=== PATIENT | female | born 1955 | race Caucasian/White ===

== ENCOUNTER 2016-11-03 16:39 | Inpatient (IN) | payer OTHER ==
[~2016-11-03] VITALS: Ht 167.6 cm; Wt 83.2 kg
[~2016-11-03 16:39] MED LIST: AMOX250C3 PO; ASCO1CAP3 PO; CALC667C4 PO; CALCTAB5 PO; CEFD300C3 PO; CHLO1TAB19 PO; CLC100 PO; CRAN1CAP15 PO; DFL150 PO; DOXY100C76 PO; EPGI10M SC; FLUD0.1T10 PO; FLUO10CA48 PO; FRRS300 PO; FURO40TA3 PO; INVI1 IV; LACT10CA PO; LINA1TAB PO; MAGNTAB4 PO; METO50TA17 PO; OMEP20CA9 PO; PRD/1 PO; RANI300T2 PO; SODI650T8 PO; TRIA0.1O12 TOP
[2016-11-03 17:33] LABS: BASO % 0.2 %; BASO ABS # 0.02 K/uL (0-0.2); COMPLETE YES; EOS % 2.2 %; HEMATOCRIT 30.8 % (37-47); IG% 0.6 %; LYMPH % 18.3 %; LYMPH ABS # 1.57 K/uL (1.2-3.4); MEAN CELL VOLUME 103.7 fL (80-100); MEAN CORPUSCULAR HEMOGLOBIN 31.6 pg (25-34); MEAN CORPUSCULAR HGB CONC 30.5 g/dl (32-36); MEAN PLATELET VOLUME 8.6 fL (7.4-10.4); MONO % 7.7 %; PLATELET COUNT 193 K/uL (130-400); RED BLOOD COUNT 2.97 M/uL (4.2-5.4)
[2016-11-03 17:40] LABS: URINE APPEARANCE TURBID (CLEAR); URINE BILIRUBIN NEG (NEG); URINE COLOR YELLOW; URINE EPITHELIAL CELL AUTO >30 /lpf (0-5); URINE NITRITE POS (NEG); URINE PH 6.5 (4.5-7.5); URINE SPECIFIC GRAVITY 1.012 (1.000-1.030); UROBILINOGEN NEG (NEG); ZZURINE CULT IF INDIC CATH YES
[2016-11-03 17:44] LABS: PARTIAL THROMBOPLASTIN RATIO 1.1; PROTHROMBIN TIME (PATIENT) 10.2 SECONDS (9.0-12.0)
--- NOTE | 2016-11-03 17:45 | DIAGNOSTIC IMAGING REPORT ---
CHEST ONE VIEW PORTABLE CLINICAL HISTORY: Altered mental status COMPARISON STUDY: 09/29/2016 FINDINGS: The heart is enlarged. There is radiographic evidence of congestive failure/fluid overload. There is increasing left pleural effusion. There is a suspected subglottic right pleural effusion. Left basal airspace opacities are likely atelectatic although an inflammatory process could appear similar. There are chronic deformities of both shoulders.[ IMPRESSION: 1. Radiographic evidence of congestive failure/fluid overload. There are increasing bilateral pleural effusions with associated left lower lobe atelectasis/consolidation Electronically signed by: Zachary Quan M.D. 11/03/2016 5:43 PM Dictated Date/Time: 11/03/2016 5:42 PM
[2016-11-03 17:48] LABS: MANUAL MICROSCOPIC REQUIRED? NO; REVIEW REQ? YES
[2016-11-03] MEDS ORDERED: FRRS300 PO (17:59)
[2016-11-03] MEDS ORDERED: LACT1CAP3 PO (17:59)
[2016-11-03] MEDS ORDERED: CLC100X PO (17:59)
[2016-11-03] MEDS ORDERED: [UNRECOGNIZED DRUG - CODE] TOP (17:59)
[2016-11-03] MEDS ORDERED: EPGI10M SC (17:59)
[2016-11-03 18:03] LABS: ALB/GLOB RATIO 0.4 (0.9-2); ALKALINE PHOSPHATASE 198 U/L (45-117); ALT/SGPT 24 U/L (12-78); AST/SGOT 18 U/L (15-37); BLOOD UREA NITROGEN 76 mg/dl (7-18); BUN/CREATININE RATIO 16.3 (10-20); CALCIUM 10.7 mg/dl (8.5-10.1); CARBON DIOXIDE 29 mmol/L (21-32); CHLORIDE 107 mmol/L (98-107); GLUCOSE 122 mg/dl (70-99); POTASSIUM 5.8 mmol/L (3.5-5.1); SODIUM 143 mmol/L (136-145)
[2016-11-03] MEDS ORDERED: DEXTROSE 50% 50 ML SYR IV STA (19:29)
[2016-11-03] MEDS ORDERED: ONDANSETRON INJ 2 MG/ML 2 ML VIAL IV PRN (19:30)
[2016-11-03] MEDS ORDERED: ACETAMINOPHEN 325 MG TAB PO PRN (19:30)
[2016-11-03] MEDS ORDERED: INSULIN HUMAN REGULAR PER UNIT 10 UNITS in SYRINGE 9.9 ML IV STA (19:45)
[2016-11-03] MEDS ORDERED: PIPERACILL/TAZOBAC CONSULT ACTIVE PRN (19:49)
[2016-11-03] MEDS ORDERED: VBRT100 PO (19:51)
[2016-11-03] MEDS ORDERED: SODI650T8 PO (19:51)
[2016-11-03] MEDS ORDERED: MULT-506 PO (19:51)
[2016-11-03] MEDS ORDERED: CHOL20007 PO (19:51)
[2016-11-03] MEDS ORDERED: AMOX500T3 PO (19:51)
[2016-11-03] MEDS ORDERED: ALBUMIN 25% 50 ML with FUROSEMIDE INJ 80 MG IV SCH ×2 (20:00)
[2016-11-03] MEDS ORDERED: GLUCAGON FOR INJ 1 MG VIAL SQ PRN (20:00)
[2016-11-03] MEDS ORDERED: GLUCOSE 40% GEL 15 GM TUBE PO PRN (20:00)
[2016-11-03] MEDS ORDERED: GLUCOSE 10 TABS/TUBE PO PRN (20:00)
[2016-11-03] MEDS ORDERED: DEXTROSE 50% 50 ML SYR IV PRN (20:00)
[2016-11-03] MEDS ORDERED: FLUCONAZOLE CONSULT ACTIVE PRN (20:06)
[2016-11-03] MEDS ORDERED: NovoLIN-R INSULIN PER UNIT CHARGE ONE (20:15)
[2016-11-03 20:55] VITALS: BP 159/79; PULSE 98; TEMP 33.9; O2SAT 99; Ht 167.6 cm; Wt 83.2 kg
[2016-11-03] MEDS ORDERED: INSULIN ASPART 100 UNITS/ML 3 ML PEN SC SCH (21:00)
[2016-11-03] MEDS ORDERED: DOCUSATE SODIUM 100 MG CAP PO SCH (21:00)
[2016-11-03] MEDS ORDERED: PIPERACILL/TAZOBAC IV 3.375 GM in DEXTROSE 5% 100ML 100 ML IV SCH (21:00)
[2016-11-03] MEDS ORDERED: PIPERACILL/TAZOBAC IV 3.375 GM in DEXTROSE 5% 100ML 100 ML IV ONE (21:00)
[2016-11-03] MEDS ORDERED: CHLORPROMAZINE HCL 25 MG TAB PO SCH (21:00)
[2016-11-03] MEDS ORDERED: SODIUM BICARBONATE 650 MG TAB PO SCH (21:00)
[2016-11-03] MEDS ORDERED: RANITIDINE HCL 150 MG TAB PO SCH (21:00)
--- NOTE | 2016-11-03 21:41 | EMERGENCY ROOM VISIT NOTE ---
History Report prepared by Cassy: Julita Mann Under the Supervision of: Dr. Amandeep Lind M.D. First contact with patient: 16:48 Chief Complaint: ABNORMAL LABS Stated Complaint: SENT BY DR RODRIGUEZ, KIDNEY FUNCTION& HIGH POTASSIUM History of Present Illness The patient is a 61 year old female who presents to the Emergency Room with complaints of abnormal lab findings occurring 2 days prior to arrival. Per the patient's sister, the patient was at Dr. Rodriguez's office when she was referred to the ED for having a potassium level of 6. The patient has kidney disease and is close to needing dialysis. She began to notice 2 days ago the patient had increased fatigue, weakness, decreased appetite and thirst, cough and congestion. She notes that this has happened to the patient more than once and these symptoms are standard for her when she has abnormal labs. The patient does not have a fever or vomiting episodes. She has had many UTI's in the past. Source of History: sibling Onset: 2 days [employer] Position: other Symptom Intensity: potassium level 6 Quality: other (abnormal labs) Timing: worsening Associated Symptoms: + cough, + fatigue, + weakness, No fevers, No vomiting Review of Systems See HPI for pertinent positives & negatives. A total of 10 systems reviewed and were otherwise negative. Past Medical & Surgical Medical Problems: (1) Adrenal hypofunction (2) Chronic kidney disease stage 4 (3) Cognitive disorder (4) Diabetes mellitus type 2 (5) Gastroesophageal reflux disease (6) History of peptic ulcer (7) History of renal calculi (8) Recurrent UTI Surgical Problems: (1) S/P cholecystectomy (2) Status post appendectomy (3) Status post cataract extraction (4) Status post hip replacement (5) Status post partial gastrectomy Family History Gallbladder disease Hypertension Social History Smoking Status: Never Smoker Alcohol Use: none Drug Use: none Marital Status: single Housing Status: lives with family Occupation Status: disabled Current/Historical Medications Scheduled Amoxicillin (Amoxil), 250 MG PO DAILY Ascorbic Acid (Vitamin C), 500 MG PO QAM Calcium Acetate (Phoslo 667 Mg), 1 CAP PO WM Cefdinir (Cefdinir), 300 MG PO DAILY Chlorpromazine Hcl (Thorazine), 25 MG PO AMPM Cholecalciferol (Vitamin D3), 1,000 INTER.UNIT PO DAILY Cranberry-Vitamin C-Vitamin E (Cranberry), 2 CAP PO BID Docusate Sodium (Docusate Sodium), 100 MG PO BID Doxycycline Hyclate (Doxycycline Hyclate), 100 MG PO DAILY Epoetin Willie (Procrit), 10,000 UNIT SC EVERY OTHER WEEK Ferrous Sulfate (Ferrous Sulfate), 325 MG PO QAM Fludrocortisone Acetate (Florinef), 1 TAB PO DAILY Fluoxetine (Prozac), 10 MG PO HS Furosemide (Lasix), 20 MG PO BID Lactobacillus Rhamnosus (GG) (Culturelle), 1 CAP PO QAM Linagliptin (Tradjenta), 5 MG PO QAM Magnesium Chloride (Slow-Mag Tab), 128 MG PO QAM Multivitamin (Multivitamin), 1 TAB PO DAILY Prednisone (Prednisone), 1 MG PO BID Ranitidine Hcl (Zantac), 300 MG PO BID Sodium Bicarbonate (Antacid) (Sodium Bicarbonate), 1 TAB PO BID Triamcinolone Acet (Triamcinolone Acetonide), 1 APPLN TOP UD Scheduled PRN Fluconazole (Fluconazole), 150 MG PO DAILY PRN for PRN Allergies Coded Allergies: Ciprofloxacin (Verified Allergy, Intermediate, HIVES, 11/03/16) Clavulanic Acid (Verified Allergy, Intermediate, HIVES, 11/03/16) Oxycodone (Verified Allergy, Intermediate, HIVES,BLISTERS; HAS TOLERATED MORPHINE, 11/03/16) Penicillins (Verified Allergy, Intermediate, HIVES (TOLERATES IMIPENEM), TOLERATED ZOSYN, 11/03/16) Propoxyphene (Verified Allergy, Intermediate, Rash; tolerates Tylenol, ) Replaces DARVOCET-N 10 Cephalosporins (Verified Allergy, Unknown, KEFLEX (TOLERATES IMIPENEM), ) Metronidazole (Verified Allergy, Unknown, RASH, 11/03/16) Nitrofurantoin (Verified Allergy, Unknown, 11/03/16) Quinolones (Verified Allergy, Unknown, CIPRO, 11/03/16) Sulfa Antibiotics (Verified Allergy, Unknown, HIVES TO SULFA DRUGS, ) Azithromycin (Verified Adverse Reaction, Mild, VOMITING, 11/03/16) Physical Exam Vital Signs Date Time Temp Pulse Resp B/P Pulse Ox O2 Delivery O2 Flow Rate FiO2 11/03/16 18:09 36.8 88 16 188/93 99 11/03/16 17:44 88 11/03/16 17:27 98 Room Air 11/03/16 16:44 88 18 166/81 94 Room Air Physical Exam GENERAL: Patient is in no acute distress. HEENT: No acute trauma, normocephalic atraumatic, mucous membranes moist, no nasal congestion, no scleral icterus. NECK: No stridor, no adenopathy, no meningismus, trachea is midline. LUNGS: Clear to auscultation bilaterally, no wheeze, no rhonchi, breath sounds equal. HEART: 2/6 systolic murmur with regular rate and rhythm. ABDOMEN: Soft, nontender, bowel sounds positive, no hernias, no peritonitis. EXTREMITIES: No cyanosis, full range of motion of all the joints without pain or difficulty, no signs for acute trauma. Mild bilateral pitting edema. NEUROLOGIC: Awake, moving extremities equally, MR noted. SKIN: No rash, no jaundice, no diaphoresis. Medical Decision & Procedures ER Provider Diagnostic Interpretation: X-ray results as stated below per interpretation by me and the radiologist: CHEST ONE VIEW PORTABLE CLINICAL HISTORY: Altered mental status COMPARISON STUDY: 09/29/2016 FINDINGS: The heart is enlarged. There is radiographic evidence of congestive failure/fluid overload. There is increasing left pleural effusion. There is a suspected subglottic right pleural effusion. Left basal airspace opacities are likely atelectatic although an inflammatory process could appear similar. There are chronic deformities of both shoulders.[ IMPRESSION: 1. Radiographic evidence of congestive failure/fluid overload. There are increasing bilateral pleural effusions with associated left lower lobe atelectasis/consolidation Electronically signed by: Zachary Quan M.D. 11/03/2016 5:43 PM Dictated Date/Time: 11/03/2016 5:42 PM Laboratory Results 11/03/16 17:00 Red Blood Count 2.97, Mean Corpuscular Volume 103.7, Mean Corpuscular Hemoglobin 31.6, Mean Corpuscular Hemoglobin Concent 30.5, Mean Platelet Volume 8.6, Neutrophils (%) (Auto) 71.0, Lymphocytes (%) (Auto) 18.3, Monocytes (%) ( Auto) 7.7, Eosinophils (%) (Auto) 2.2, Basophils (%) (Auto) 0.2, Neutrophils # ( Auto) 6.11, Lymphocytes # (Auto) 1.57, Monocytes # (Auto) 0.66, Eosinophils # ( Auto) 0.19, Basophils # (Auto) 0.02 11/03/16 17:00 Test 11/03/16 17:00 11/03/16 17:08 11/03/16 17:15 White Blood Count 8.60 K/uL (4.8-10.8) Red Blood Count 2.97 M/uL (4.2-5.4) Hemoglobin 9.4 g/dL (12.0-16.0) Hematocrit 30.8 % (37-47) Mean Corpuscular Volume 103.7 fL (80-100) Mean Corpuscular Hemoglobin 31.6 pg (25-34) Mean Corpuscular Hemoglobin Concent 30.5 g/dl (32-36) Platelet Count 193 K/uL (130-400) Mean Platelet Volume 8.6 fL (7.4-10.4) Neutrophils (%) (Auto) 71.0 % Lymphocytes (%) (Auto) 18.3 % Monocytes (%) (Auto) 7.7 % Eosinophils (%) (Auto) 2.2 % Basophils (%) (Auto) 0.2 % Neutrophils # (Auto) 6.11 K/uL (1.4-6.5) Lymphocytes # (Auto) 1.57 K/uL (1.2-3.4) Monocytes # (Auto) 0.66 K/uL (0.11-0.59) Eosinophils # (Auto) 0.19 K/uL (0-0.5) Basophils # (Auto) 0.02 K/uL (0-0.2) RDW Standard Deviation 58.8 fL (36.4-46.3) RDW Coefficient of Variation 16.0 % (11.5-14.5) Immature Granulocyte % (Auto) 0.6 % Immature Granulocyte # (Auto) 0.05 K/uL (0.00-0.02) Nucleated RBC Absolute Count (auto) 0.03 K/uL (0-0) Nucleated Red Blood Cells % 0.3 % Prothrombin Time 10.2 SECONDS (9.0-12.0) Prothromb Time International Ratio 1.0 (0.9-1.1) Activated Partial Thromboplast Time 28.0 SECONDS (21.0-31.0) Partial Thromboplastin Ratio 1.1 Anion Gap 7.0 mmol/L (3-11) Est Creatinine Clear Calc Drug Dose 12.4 ml/min Estimated GFR () 10.4 Estimated GFR (Non- 9.0 BUN/Creatinine Ratio 16.3 (10-20) Calcium Level 10.7 mg/dl (8.5-10.1) Total Bilirubin 0.2 mg/dl (0.2-1) Aspartate Amino Transf (AST/SGOT) 18 U/L (15-37) Alanine Aminotransferase (ALT/SGPT) 24 U/L (12-78) Alkaline Phosphatase 198 U/L (45-117) Troponin I < 0.015 ng/ml (0-0.045) Total Protein 5.8 gm/dl (6.4-8.2) Albumin 1.7 gm/dl (3.4-5.0) Globulin 4.1 gm/dl (2.5-4.0) Albumin/Globulin Ratio 0.4 (0.9-2) Influenza Type A Antigen Neg for Influ A (NEG) Influenza Type B Antigen Neg for Influ B (NEG) Urine Color YELLOW Urine Appearance TURBID (CLEAR) Urine pH 6.5 (4.5-7.5) Urine Specific [place] 1.012 (1.000-1.030) Urine Protein 3+ (NEG) Urine Glucose (UA) NEG (NEG) Urine Ketones NEG (NEG) Urine Occult Blood 2+ (NEG) Urine Nitrite POS (NEG) Urine Bilirubin NEG (NEG) Urine Urobilinogen NEG (NEG) Urine Leukocyte Esterase LARGE (NEG) Urine WBC (Auto) >30 /hpf (0-5) Urine RBC (Auto) >30 /hpf (0-4) Urine Hyaline Casts (Auto) 5-10 /lpf (0-5) Urine Epithelial Cells (Auto) >30 /lpf (0-5) Urine Bacteria (Auto) NEG (NEG) Urine Pathogenic Casts /lpf (0) Urine Yeast (Auto) PRESENT (NONE PRSENT) Laboratory results reviewed by me. Medications Administered Medications (Trade) Dose Ordered Sig/Yas Route Start Time Stop Time Status Last Admin Dose Admin Dextrose (Dextrose 50% 50ML Syringe) 50 ml NOW STAT IV 11/03/16 19:29 11/03/16 19:48 DC 11/03/16 20:02 50 ML ECG Indication: other (abnormal labs) Rate (beats per minute): 89 Rhythm: normal sinus Findings: nonspecific-ST abn (diffuse), no ectopy ED Course 1647: The patient was evaluated in room A11. A complete history and physical exam was performed. 1834: Discussed the patient's case with Dr. Katina BREAUX. The patient will be evaluated for further management. Medical Decision The patient is a 61 year old female who presents to the ED with complaints of abnormal lab findings. Differential diagnoses considered include dehydration, renal failure, electrolyte imbalance, urinary infection, pneumonia, influenza. There is no leukocytosis. The patient is anemic, this is normal for her though looking back at previous testing. No hepatitis. Renal panel testing shows acute on chronic renal failure, potassium is somewhat high but not critical. There is no coagulopathy. Urinalysis is suggestive of infection, urine culture is pending. Influenza testing is negative. Chest film does show CHF. EKG shows a sinus rhythm with some nonspecific changes, no acute ischemia. Cardiac enzyme testing times one is not suggestive of acute cardiac injury. The patient presents with some fatigue and cough. She has acute on chronic renal failure, her potassium is somewhat elevated. She is in heart failure. Given her findings, admission/observation is warranted. I spoke to the patient and with case management. The on-call hospitalist was consulted. Of note, I have decided to hold on antibiotics for now for the potential UTI as she has no fever and no leukocytosis. We await the urine culture results. Consults Time Called: 1829 Consulting Physician: Dr. Katina BREAUX Returned Call: [phone] Discussed the patient's case. The patient will be evaluated for further management. Impression Primary Impression: CHF (congestive heart failure) Additional Impressions: Renal failure Hyperkalemia Scribe Attestation The scribe's documentation has been prepared under my direction and personally reviewed by me in its entirety. I confirm that the note above accurately reflects all work, treatment, procedures, and medical decision making performed by me. Departure Information Dispostion Being Evaluated By Hospitalist Referrals Esly Frankel D.O. (PCP) Problem Qualifiers
[2016-11-03] MEDS ORDERED: FLUCONAZOLE / NSS 200 MG in PREMIXED NSS 100 ML IV ONE (22:30)
[2016-11-03] MEDS ORDERED: FLUOXETINE HCL 10 MG CAP PO SCH (23:00)
[2016-11-03 23:14] LABS: BUN/CREATININE RATIO 15.7 (10-20); CALCIUM 10.6 mg/dl (8.5-10.1); CREATININE 4.8 mg/dl (0.60-1.20)
[2016-11-03] MEDS ORDERED: HYDROCORTISONE IV ONE (23:15)
--- NOTE | 2016-11-03 23:43 | History and Physical ---
History & Physical Date & Time of Service: Nov 03, 2016 at 22:34 Chief Complaint: Lethargy, Weakness Primary Care Physician: Elsy Frankel D.O. History of Present Illness 61 year old female who presents to the ER with lethargy and weakness. Patient has underlying mental retardation and most of the history is obtained from her family. Patient was recently admitted to [facility] 09/26 - 10/01 for sepsis due to pneumonia and UTI. Patient's family reports she has been doing well since being home. Patient started to get sick two nights ago. They have noticed increased lethargy and generalized weakness. She has been breathing through her mouth and fast. She has a cough but it is very weak. She has lower extremity edema which is at baseline. No reports of chest pain. No abdominal pain, nausea, vomiting, or diarrhea. Family has noticed her urine output has been down. No fever or chills. Family contacted patient's yield loss inspector who ordered labs that showed worsening renal function and hyperkalemia. Patient was referred to the ER for further evaluation. In the ER, patient's creat is 4.8 and K+ is 5.8. U/A is consistent with UTI. Chest XR is showing volume overload. Past Medical/Surgical History Medical Problems: (1) Adrenal hypofunction Status: Chronic (2) Chronic kidney disease stage 4 Status: Chronic (3) Cognitive disorder Status: Chronic (4) Diabetes mellitus type 2 Status: Chronic (5) Gastroesophageal reflux disease Status: Chronic (6) History of peptic ulcer Status: Chronic (7) History of renal calculi Status: Chronic (8) Recurrent UTI Status: Chronic Surgical Problems: (1) S/P cholecystectomy Status: Chronic (2) Status post appendectomy Status: Chronic (3) Status post cataract extraction Status: Chronic (4) Status post hip replacement Status: Chronic (5) Status post partial gastrectomy Status: Chronic Family History Hypertension FATHER MOTHER Social History Smoking Status: Never Smoker Alcohol Use: none Housing status: lives with family Occupational Status: disabled Immunizations History of Influenza Vaccine: Yes Influenza Vaccine Date: Aug 21, 2016 History of Tetanus Vaccine?: Yes Tetanus Immunization Date: Mar 24, 2008 History of Pneumococcal: Yes Pneumococcal Date: Jul 15, 1990 Multi-Drug Resistant Organisms History of MDRO: No Allergies Coded Allergies: Ciprofloxacin (Verified Allergy, Intermediate, HIVES, 11/03/16) Clavulanic Acid (Verified Allergy, Intermediate, HIVES, 11/03/16) Oxycodone (Verified Allergy, Intermediate, HIVES,BLISTERS; HAS TOLERATED MORPHINE, 11/03/16) Penicillins (Verified Allergy, Intermediate, HIVES (TOLERATES IMIPENEM), TOLERATED ZOSYN, 11/03/16) Propoxyphene (Verified Allergy, Intermediate, Rash; tolerates Tylenol, ) Replaces DARVOCET-N 10 Cephalosporins (Verified Allergy, Unknown, KEFLEX (TOLERATES IMIPENEM), ) Metronidazole (Verified Allergy, Unknown, RASH, 11/03/16) Nitrofurantoin (Verified Allergy, Unknown, 11/03/16) Quinolones (Verified Allergy, Unknown, CIPRO, 11/03/16) Sulfa Antibiotics (Verified Allergy, Unknown, HIVES TO SULFA DRUGS, ) Azithromycin (Verified Adverse Reaction, Mild, VOMITING, 11/03/16) Home Medications Scheduled Amoxicillin (Amoxil), 250 MG PO DAILY Ascorbic Acid (Vitamin C), 500 MG PO QAM Calcium Acetate (Phoslo 667 Mg), 1 CAP PO WM Cefdinir (Cefdinir), 300 MG PO DAILY Chlorpromazine Hcl (Thorazine), 25 MG PO AMPM Cholecalciferol (Vitamin D3), 1,000 INTER.UNIT PO DAILY Cranberry-Vitamin C-Vitamin E (Cranberry), 2 CAP PO BID Docusate Sodium (Docusate Sodium), 100 MG PO BID Doxycycline Hyclate (Doxycycline Hyclate), 100 MG PO DAILY Epoetin Willie (Procrit), 10,000 UNIT SC EVERY OTHER WEEK Ferrous Sulfate (Ferrous Sulfate), 325 MG PO QAM Fludrocortisone Acetate (Florinef), 1 TAB PO DAILY Fluoxetine (Prozac), 10 MG PO HS Furosemide (Lasix), 20 MG PO BID Lactobacillus Rhamnosus (GG) (Culturelle), 1 CAP PO QAM Linagliptin (Tradjenta), 5 MG PO QAM Magnesium Chloride (Slow-Mag Tab), 128 MG PO QAM Multivitamin (Multivitamin), 1 TAB PO DAILY Prednisone (Prednisone), 1 MG PO BID Ranitidine Hcl (Zantac), 300 MG PO BID Triamcinolone Acet (Triamcinolone Acetonide), 1 APPLN TOP UD Scheduled PRN Fluconazole (Fluconazole), 150 MG PO DAILY PRN for PRN Review of Systems unable to be completed with patient due to mental status; history obtained from family as per HPI Physical Exam Vital Signs Date Time Temp Pulse Resp B/P Pulse Ox O2 Delivery O2 Flow Rate FiO2 11/03/16 20:55 33.9 98 20 159/79 99 Nasal Cannula 2.0 11/03/16 18:09 36.8 88 16 188/93 99 11/03/16 17:44 88 11/03/16 17:27 98 Room Air 11/03/16 16:44 88 18 166/81 94 Room Air General Appearance: no apparent distress Head: normocephalic Eyes: normal inspection ENT: hearing grossly normal Neck: supple, no JVD Respiratory/Chest: + crackles, + rhonchi Cardiovascular: regular rate, rhythm, normal peripheral pulses, + pertinent finding (+2 pitting edema BLLE) Abdomen/GI: normal bowel sounds, non tender, soft Extremities/Musculoskelatal: normal inspection, no calf tenderness Neurologic/Psych: + pertinent finding (hx mental retardation, mildly lethargic , minimal interaction ) Skin: normal color, warm/dry Diagnostics Laboratory Results Results Past 24 Hours Test 11/03/16 17:00 11/03/16 17:08 11/03/16 17:15 11/03/16 22:18 Range/Units White Blood Count 8.60 4.8-10.8 K/uL Red Blood Count 2.97 4.2-5.4 M/uL Hemoglobin 9.4 12.0-16.0 g/dL Hematocrit 30.8 37-47 % Mean Corpuscular Volume 103.7 80-100 fL Mean Corpuscular Hemoglobin 31.6 25-34 pg Mean Corpuscular Hemoglobin Concent 30.5 32-36 g/dl Platelet Count 193 130-400 K/uL Mean Platelet Volume 8.6 7.4-10.4 fL Neutrophils (%) (Auto) 71.0 % Lymphocytes (%) (Auto) 18.3 % Monocytes (%) (Auto) 7.7 % Eosinophils (%) (Auto) 2.2 % Basophils (%) (Auto) 0.2 % Neutrophils # (Auto) 6.11 1.4-6.5 K/uL Lymphocytes # (Auto) 1.57 1.2-3.4 K/uL Monocytes # (Auto) 0.66 0.11-0.59 K/uL Eosinophils # (Auto) 0.19 0-0.5 K/uL Basophils # (Auto) 0.02 0-0.2 K/uL RDW Standard Deviation 58.8 36.4-46.3 fL RDW Coefficient of Variation 16.0 11.5-14.5 % Immature Granulocyte % (Auto) 0.6 % Immature Granulocyte # (Auto) 0.05 0.00-0.02 K/uL Nucleated RBC Absolute Count (auto) 0.03 0-0 K/uL Nucleated Red Blood Cells % 0.3 % Prothrombin Time 10.2 9.0-12.0 SECONDS Prothromb Time International Ratio 1.0 0.9-1.1 Activated Partial Thromboplast Time 28.0 21.0-31.0 SECONDS Partial Thromboplastin Ratio 1.1 Sodium Level 143 136-145 mmol/L Potassium Level 5.8 3.5-5.1 mmol/L Chloride Level 107 98-107 mmol/L Carbon Dioxide Level 29 21-32 mmol/L Anion Gap 7.0 3-11 mmol/L Blood Urea Nitrogen 76 7-18 mg/dl Creatinine 4.80 0.60-1.20 mg/dl Est Creatinine Clear Calc Drug Dose 12.4 ml/min Estimated GFR () 10.4 Estimated GFR (Non- 9.0 BUN/Creatinine Ratio 16.3 10-20 Random Glucose 122 70-99 mg/dl Calcium Level 10.7 8.5-10.1 mg/dl Total Bilirubin 0.2 0.2-1 mg/dl Aspartate Amino Transf (AST/SGOT) 18 15-37 U/L Alanine Aminotransferase (ALT/SGPT) 24 12-78 U/L Alkaline Phosphatase 198 45-117 U/L Troponin I < 0.015 0-0.045 ng/ml Total Protein 5.8 6.4-8.2 gm/dl Albumin 1.7 3.4-5.0 gm/dl Globulin 4.1 2.5-4.0 gm/dl Albumin/Globulin Ratio 0.4 0.9-2 Influenza Type A Antigen Neg for Influ A NEG Influenza Type B Antigen Neg for Influ B NEG Urine Color YELLOW Urine Appearance TURBID CLEAR Urine pH 6.5 4.5-7.5 Urine Specific Williams 1.012 1.000-1.030 Urine Protein 3+ NEG Urine Glucose (UA) NEG NEG Urine Ketones NEG NEG Urine Occult Blood 2+ NEG Urine Nitrite POS NEG Urine Bilirubin NEG NEG Urine Urobilinogen NEG NEG Urine Leukocyte Esterase LARGE NEG Urine WBC (Auto) >30 0-5 /hpf Urine RBC (Auto) >30 0-4 /hpf Urine Hyaline Casts (Auto) 5-10 0-5 /lpf Urine Epithelial Cells (Auto) >30 0-5 /lpf Urine Bacteria (Auto) NEG NEG Urine Pathogenic Casts 0 /lpf Urine Yeast (Auto) PRESENT NONE PRSENT Microbiology Results 11/03/16 MRSA DNA Surveillance Screen, Received Pending 11/03/16 Urine Culture, Received Pending Diagnostic Radiology CXR IMPRESSION: 1. Radiographic evidence of congestive failure/fluid overload. There are increasing bilateral pleural effusions with associated left lower lobe atelectasis/consolidation Impression Assessment and Plan VOLUME OVERLOAD IN THE SETTING OF CKD STAGE IV - admit to tele - baseline creat runs in the mid 4's -> 4.8 today; nephrology has discussed dialysis with family and they decline as patient would not be a good candidate - CXR shows BL pleural effusions and patient has crackles and pitting edema on exam - case discussed with Dr. Lawler - will give Lasix 80mg IV BID with albumin - sandoval placed for strict I/Os - daily weights - check echo - noted that sodium bicarb was recently stopped by Dr. Lawler to rod buster helper with edema HYPERKALEMIA, HYPERCALCEMIA - patient not alert enough for Kayexalate - no EKG changes - will give insulin and D50, Lasix will help too - hold calcium acetate - recheck PRP later tonight POSSIBLE SEPSIS DUE TO UTI / ? PNEUMONIA - on initial exam, patient did not meet any SIRS criteria, however once patient transferred to floor, she was noted to hypothermic and tachycardic - will check Lactate and obtain blood cultures - has history of recurrent UTIs and is chronically on amoxicillin, cefdinir, doxycycline on a rotating basis - most recent urine culture grew klebsiella oxytoca - will place on Zosyn per allergies and prior culture results - urine culture pending - CXR showing consolidation in the left base - Zosyn will cover pulmonary source as well - no history of MRSA and vanco caused nephrotoxicity; will check MRSA nasal swab and if positive, could add Zyvox ALTERED MENTAL STATUS - likely multifactorial due to above - will check CT head ADRENAL INSUFFICIENCY - chronically on prednisone and Florinef - unable to take PO currently due to mental status - will convert PO prednisone dose to IV hydrocortisone for tonight - BP stable DM - hgb a1c 6.2 05/2016 - hold oral agents and utilize SSI while hospitalized DVT PROPHYLAXIS - SCDs due to anemia and history of perforated ulcer CODE STATUS - Patient is a full code as per my discussion with patient's family who is at the bedside. DISPO - In my clinical judgment this beneficiary meets acute admission criteria, established by [facility], that includes being hospitalized through two midnights. Attending Note: Patient is a 61 Yr old female with PMH of MR, CKD, adrenal insufficiency, DM presents with lethargy, weakness. Patient could not provide any history and most of the history is obtained from the family. Patient on examination is in volume overload, ideally needs HD given CKD but not a candidate secondary to mental retardation. Also seemed to be septic likely secondary to Pneumonia, UTI. She is currently saturating well on 2L NC. She was found to have worsening renal function and is hyperkalemia. Physical Exam: Vitals signs as noted above General Appearance:Moderately built, chronically ill appearing, mild resp. distress Head: normocephalic, Atraumatic Eyes: normal inspection, EOMI, Anicteric Neck: supple, Trachea midline Respiratory/Chest: B/L rhonchi and crepitations Cardiovascular: S1, S2, no murmur Abdomen/GI:Soft, Non tender, BS present Extremities/Musculoskelatal:normal inspection, 2+ edema b/l LE Neurologic/Psych:+ mental retardation, moves all extremities.Complete neuro exam could not be performed. Assessment and Plan: Volume overload and Hypoxic respiratory failure: Background of CKD IV, Hypoalbuminemia Ideally needs HD, not a candidate secondary to mental retardation Will give lasix, albumin per recommendations from Nephrology Respiratory support Check ECHO Bronchodilators PRN Nephrology consulted Possible Sepsis: Pneumonia, R/O UTI Start on broad spectrum IV antibiotics Blood/Urine cultures Check lactic acid AMS: Likely secondary to sepsis Check CT head Agree with assessment and plan of Alea Romo [employer] G[employer] SHOTHOLE DRILLER as above. please review above for details. Advanced Directives Existing Advance Directive: No Existing Living Will: No Existing Power of Tank Bottom Assembler: No VTE Prophylaxis VTE Risk Assessment Done? Y/N: Yes Risk Level: Moderate
[2016-11-04] VITALS (10 sets, daily range): BP systolic 84–169; BP diastolic 51–90; PULSE 97–125; TEMP 34–37.4; O2SAT 92–100
[2016-11-04 01:58] LABS: ISTAT ARTERIAL BLOOD GAS HCO3 30 meq/L (19-24); ISTAT ARTERIAL BLOOD GAS PCO2 72 mmHg (35-46); ISTAT ARTERIAL BLOOD GAS PO2 273 mmHg (80-95); ISTAT ARTERIAL BLOOD GAS pH 7.23 (7.35-7.45); ISTAT CARBON DIOXIDE 32 mEq/l (24-31); ISTAT HEMATOCRIT 29 % (37-47); ISTAT HEMOGLOBIN 9.9 g/dl (12.0-16.0); ISTAT SODIUM 140 mEq/L (135-144)
--- NOTE | 2016-11-04 01:58 | Progress Note ---
Internal Med Progress Note Date of Service: Nov 04, 2016. Provider Documentation: SUBJECTIVE: CODE BLUE called around 1AM at CT scan per RN/PUNCH PRESS OPERATOR, px noted to be in resp distress while in CT subsequently developed cardioresp arrest CPR initiated px subsequently intubated by ER MD Martini given ROSC obtained after a few minutes of CPR OBJECTIVE: Vital Signs-as noted below Exam: General-unresponsive, intubated, cushingoid HEENT -pale palp conjunctivae, dry buccal mucosa, ET noted (quintero boss secretions noted) attached to ambubag by RT Neck- short Lungs-rhonchi lalo Heart-tachycardic Abdomen-distension Extremities-min edemam NT NE unresponsive CXR infiltrate, bibasilar infiltrates AP Cardioresp arrest multifactorial : bilateral pneumonia, poss sepsis pulm congestion, ESRD (px not a dialysis candidate as per records) ICU transfer vent mx ff CS, Vanco, Zosyn for now Lasix precluded by low BP nebs, steroids RTC TTE re cardiac arrest Px sister, Jia, updated of px critical condition, potential for another cardiac arrest by myself and Dr. Caballero (specimen boss). She agrees to de-escalate code status to DNR in the event of another arrest. Keep on vent and meds for now. PX sister requesting to hold off on invasive procedures (dialysis, central line placement). She will notify px's mother of developments. Total critical care time : 45 mins Vital Signs: Date Time Temp Pulse Resp B/P Pulse Ox O2 Delivery O2 Flow Rate FiO2 11/04/16 07:30 50 11/04/16 06:00 36.6 124 20 117/65 93 Mechanical Ventilator 50 11/04/16 05:15 50 11/04/16 05:00 36.7 124 20 111/65 94 Mechanical Ventilator 50 11/04/16 05:00 94 Mechanical Ventilator 50 11/04/16 05:00 50 11/04/16 04:00 36.2 119 20 97/55 94 Mechanical Ventilator 50 11/04/16 03:00 35.2 107 20 84/51 93 Mechanical Ventilator 35 11/04/16 02:30 40 11/04/16 01:54 60 11/04/16 01:40 34.1 108 20 169/90 100 Mechanical Ventilator 100 11/04/16 00:00 34.0 97 20 149/73 92 Nasal Cannula 4.0 11/04/16 00:00 Nasal Cannula 4.0 11/03/16 20:55 33.9 98 20 159/79 99 Nasal Cannula 2.0 11/03/16 18:09 36.8 88 16 188/93 99 11/03/16 17:44 88 11/03/16 17:27 98 Room Air 11/03/16 16:44 88 18 166/81 94 Room Air Lab Results: Results Past 24 Hours Test 11/03/16 17:00 11/03/16 17:08 11/03/16 17:15 11/03/16 22:18 Range/Units White Blood Count 8.60 4.8-10.8 K/uL Red Blood Count 2.97 4.2-5.4 M/uL Hemoglobin 9.4 12.0-16.0 g/dL Hematocrit 30.8 37-47 % Mean Corpuscular Volume 103.7 80-100 fL Mean Corpuscular Hemoglobin 31.6 25-34 pg Mean Corpuscular Hemoglobin Concent 30.5 32-36 g/dl Platelet Count 193 130-400 K/uL Mean Platelet Volume 8.6 7.4-10.4 fL Neutrophils (%) (Auto) 71.0 % Lymphocytes (%) (Auto) 18.3 % Monocytes (%) (Auto) 7.7 % Eosinophils (%) (Auto) 2.2 % Basophils (%) (Auto) 0.2 % Neutrophils # (Auto) 6.11 1.4-6.5 K/uL Lymphocytes # (Auto) 1.57 1.2-3.4 K/uL Monocytes # (Auto) 0.66 0.11-0.59 K/uL Eosinophils # (Auto) 0.19 0-0.5 K/uL Basophils # (Auto) 0.02 0-0.2 K/uL RDW Standard Deviation 58.8 36.4-46.3 fL RDW Coefficient of Variation 16.0 11.5-14.5 % Immature Granulocyte % (Auto) 0.6 % Immature Granulocyte # (Auto) 0.05 0.00-0.02 K/uL Nucleated RBC Absolute Count (auto) 0.03 0-0 K/uL Nucleated Red Blood Cells % 0.3 % Prothrombin Time 10.2 9.0-12.0 SECONDS Prothromb Time International Ratio 1.0 0.9-1.1 Activated Partial Thromboplast Time 28.0 21.0-31.0 SECONDS Partial Thromboplastin Ratio 1.1 Sodium Level 143 146 136-145 mmol/L Potassium Level 5.8 5.0 3.5-5.1 mmol/L Chloride Level 107 109 98-107 mmol/L Carbon Dioxide Level 29 27 21-32 mmol/L Anion Gap 7.0 10.0 3-11 mmol/L Blood Urea Nitrogen 76 75 7-18 mg/dl Creatinine 4.80 4.80 0.60-1.20 mg/dl Est Creatinine Clear Calc Drug Dose 12.4 12.9 ml/min Estimated GFR () 10.4 10.4 Estimated GFR (Non- 9.0 9.0 BUN/Creatinine Ratio 16.3 15.7 10-20 Random Glucose 122 52 70-99 mg/dl Calcium Level 10.7 10.6 8.5-10.1 mg/dl Total Bilirubin 0.2 0.2-1 mg/dl Aspartate Amino Transf (AST/SGOT) 18 15-37 U/L Alanine Aminotransferase (ALT/SGPT) 24 12-78 U/L Alkaline Phosphatase 198 45-117 U/L Troponin I < 0.015 0-0.045 ng/ml Total Protein 5.8 6.4-8.2 gm/dl Albumin 1.7 3.4-5.0 gm/dl Globulin 4.1 2.5-4.0 gm/dl Albumin/Globulin Ratio 0.4 0.9-2 Influenza Type A Antigen Neg for Influ A NEG Influenza Type B Antigen Neg for Influ B NEG Urine Color YELLOW Urine Appearance TURBID CLEAR Urine pH 6.5 4.5-7.5 Urine Specific Potter 1.012 1.000-1.030 Urine Protein 3+ NEG Urine Glucose (UA) NEG NEG Urine Ketones NEG NEG Urine Occult Blood 2+ NEG Urine Nitrite POS NEG Urine Bilirubin NEG NEG Urine Urobilinogen NEG NEG Urine Leukocyte Esterase LARGE NEG Urine WBC (Auto) >30 0-5 /hpf Urine RBC (Auto) >30 0-4 /hpf Urine Hyaline Casts (Auto) 5-10 0-5 /lpf Urine Epithelial Cells (Auto) >30 0-5 /lpf Urine Bacteria (Auto) NEG NEG Urine Pathogenic Casts 0 /lpf Urine Yeast (Auto) PRESENT NONE PRSENT Test 11/03/16 23:23 11/03/16 23:29 11/04/16 00:00 11/04/16 01:30 Range/Units Lactic Acid Level 1.3 0.4-2.0 mmol/L Bedside Glucose 61 96 70-90 mg/dl White Blood Count 18.45 4.8-10.8 K/uL Red Blood Count 2.74 4.2-5.4 M/uL Hemoglobin 8.8 12.0-16.0 g/dL Hematocrit 28.1 37-47 % Mean Corpuscular Volume 102.6 80-100 fL Mean Corpuscular Hemoglobin 32.1 25-34 pg Mean Corpuscular Hemoglobin Concent 31.3 32-36 g/dl Platelet Count 211 130-400 K/uL Mean Platelet Volume 9.4 7.4-10.4 fL Neutrophils (%) (Auto) 38.1 % Lymphocytes (%) (Auto) 51.4 % Monocytes (%) (Auto) 7.8 % Eosinophils (%) (Auto) 1.3 % Basophils (%) (Auto) 0.2 % Neutrophils # (Auto) 7.03 1.4-6.5 K/uL Lymphocytes # (Auto) 9.49 1.2-3.4 K/uL Monocytes # (Auto) 1.43 0.11-0.59 K/uL Eosinophils # (Auto) 0.24 0-0.5 K/uL Basophils # (Auto) 0.04 0-0.2 K/uL RDW Standard Deviation 58.8 36.4-46.3 fL RDW Coefficient of Variation 16.1 11.5-14.5 % Immature Granulocyte % (Auto) 1.2 % Immature Granulocyte # (Auto) 0.22 0.00-0.02 K/uL Nucleated RBC Absolute Count (auto) 0.21 0-0 K/uL Nucleated Red Blood Cells % 1.1 % Red Blood Cell Morphology Unremarkable Sodium Level 146 136-145 mmol/L Potassium Level 4.7 3.5-5.1 mmol/L Chloride Level 107 98-107 mmol/L Carbon Dioxide Level 28 21-32 mmol/L Anion Gap 11.0 3-11 mmol/L Blood Urea Nitrogen 77 7-18 mg/dl Creatinine 4.80 0.60-1.20 mg/dl Est Creatinine Clear Calc Drug Dose 12.9 ml/min Estimated GFR () 10.4 Estimated GFR (Non- 9.0 BUN/Creatinine Ratio 16.1 10-20 Random Glucose 341 70-99 mg/dl Calcium Level 9.8 8.5-10.1 mg/dl Magnesium Level 3.4 1.8-2.4 mg/dl Total Bilirubin 0.1 0.2-1 mg/dl Aspartate Amino Transf (AST/SGOT) 24 15-37 U/L Alanine Aminotransferase (ALT/SGPT) 25 12-78 U/L Alkaline Phosphatase 140 45-117 U/L Troponin I < 0.015 0-0.045 ng/ml Total Protein 5.0 6.4-8.2 gm/dl Albumin 1.6 3.4-5.0 gm/dl Globulin 3.4 2.5-4.0 gm/dl Albumin/Globulin Ratio 0.5 0.9-2 Beta-Hydroxybutyric Acid 5.08 0.2-2.81 mg/dL Test 11/04/16 01:45 11/04/16 04:00 11/04/16 04:29 11/04/16 07:48 Range/Units Bedside Hemoglobin 9.9 12.0-16.0 g/dl Bedside Hematocrit 29 37-47 % Bedside Blood Gas pH (LAB) 7.23 7.38 7.35-7.45 Bedside Blood Gas pCO2 (LAB) 72 47 35-46 mmHg Bedside Blood Gas pO2 (LAB) 273 53 80-95 mmHg Bedside Blood Gas HCO3 (LAB) 30 28 19-24 meq/L Bedside Blood Gas Total CO2 32 29 24-31 mEq/l Bedside Blood Gas Base Excess (LAB) 2.0 2.0 -9-1.8 meq/L Bedside Blood Gas O2 Saturation 100.0 87.0 90-95 % Bedside Sodium 140 135-144 mEq/L Bedside Potassium 4.5 3.3-5.0 mEq/L Blood Gas Sample Site R Radial Alfredo Test Pass Oxygen Delivery Device Ventilator Bedside Oxygen Rate (breaths/min) 20 Blood Gas Minute Ventilation 7.4 Bedside FiO2 40 % Blood Gas Tidal Volume 400 Blood Gas PEEP 5 Bedside Glucose 144 138 70-90 mg/dl Test 11/04/16 07:59 Range/Units Microbiology Results 11/03/16 Blood Culture, Received Pending 11/03/16 Blood Culture, Received Pending 1/20/17 MRSA DNA Surveillance Screen - Final, Complete Specimen Negative for MRSA by DNA Probe 11/04/16 Gram Stain, Received Pending 11/04/16 Sputum Culture, Received Pending 11/03/16 Urine Culture, Received Pending 11/04/16 Gram Stain, Received Pending 11/04/16 Wound Culture, Received Pending
[2016-11-04] MEDS ORDERED: VANCOMYCIN INJ 1,700 MG in SODIUM CHLORIDE 0.9% 500ML 500 ML IV STA (02:03)
[2016-11-04] MEDS ORDERED: DEXAMETHASONE INJ 4 MG in SYRINGE 0 ML IV ONE (02:15)
[2016-11-04] MEDS ORDERED: VANCOMYCIN CONSULT ACTIVE PRN (02:15)
[2016-11-04] MEDS ORDERED: HYDROmorphone INJ 0.5 MG/0.5 ML SYR IV PRN (02:15)
[2016-11-04] MEDS ORDERED: IPRATROPIUM BROMIDE HFA INHALER INH ONE (02:16)
[2016-11-04] MEDS ORDERED: LEValbuterol HFA 15GM INHALER INH ONE (02:16)
[2016-11-04] MEDS ORDERED: METHYLPREDNISOLONE IV 125 MG in SYRINGE 0 ML IV ONE (02:30)
[2016-11-04 03:02] LABS: BASO % 0.2 %; BASO ABS # 0.04 K/uL (0-0.2); COMPLETE YES; EOS % 1.3 %; HEMATOCRIT 28.1 % (37-47); IG% 1.2 %; LYMPH % 51.4 %; LYMPH ABS # 9.49 K/uL (1.2-3.4); MEAN CELL VOLUME 102.6 fL (80-100); MEAN CORPUSCULAR HEMOGLOBIN 32.1 pg (25-34); MEAN CORPUSCULAR HGB CONC 31.3 g/dl (32-36); MEAN PLATELET VOLUME 9.4 fL (7.4-10.4); MONO % 7.8 %; NEUT % 38.1 %; PLATELET COUNT 211 K/uL (130-400); RED BLOOD COUNT 2.74 M/uL (4.2-5.4); WHITE BLOOD COUNT 18.45 K/uL (4.8-10.8)
[2016-11-04 03:13] LABS: ALB/GLOB RATIO 0.5 (0.9-2); ALKALINE PHOSPHATASE 140 U/L (45-117); ALT/SGPT 25 U/L (12-78); AST/SGOT 24 U/L (15-37); BLOOD UREA NITROGEN 77 mg/dl (7-18); BUN/CREATININE RATIO 16.1 (10-20); CALCIUM 9.8 mg/dl (8.5-10.1); CARBON DIOXIDE 28 mmol/L (21-32); CHLORIDE 107 mmol/L (98-107); GLUCOSE 341 mg/dl (70-99); MAGNESIUM 3.4 mg/dl (1.8-2.4); POTASSIUM 4.7 mmol/L (3.5-5.1); SODIUM 146 mmol/L (136-145)
[2016-11-04 03:38] LABS: BETA-HYDROXYBUTYRATE 5.08 mg/dL (0.2-2.81)
[2016-11-04] MEDS ORDERED: PIPERACILL/TAZOBAC IV 3.375 GM in DEXTROSE 5% 100ML 100 ML IV SCH (04:00)
[2016-11-04 04:14] LABS: ISTAT ALLEN TEST Pass; ISTAT ARTERIAL BLOOD GAS HCO3 28 meq/L (19-24); ISTAT ARTERIAL BLOOD GAS PCO2 47 mmHg (35-46); ISTAT ARTERIAL BLOOD GAS PO2 53 mmHg (80-95); ISTAT ARTERIAL BLOOD GAS pH 7.38 (7.35-7.45); ISTAT CARBON DIOXIDE 29 mEq/l (24-31); ISTAT DELIVERY SYSTEM Ventilator; ISTAT FIO2 40 %; ISTAT PEEP 5; ISTAT RATE 20; ISTAT SITE R Radial; VE 7.4; Vt 400
[2016-11-04] MEDS ORDERED: INSULIN GLARGINE SOLOSTAR 100 UNITS/ML 3 ML PEN SC ONE (04:30)
[2016-11-04] MEDS ORDERED: IPRATROPIUM BROMIDE HFA INHALER INH SCH (06:00)
[2016-11-04] MEDS ORDERED: LEValbuterol HFA 15GM INHALER INH SCH (06:00)
[2016-11-04] MEDS: LEValbuterol HFA 15GM INHALER INH SCH ×2 (07:30→14:14)
[2016-11-04] MEDS: IPRATROPIUM BROMIDE HFA INHALER INH SCH ×2 (07:30→14:14)
--- NOTE | 2016-11-04 08:10 | Pharmacy Progress Note ---
Pharmacy Antibiotic Consult Date of Service: Nov 04, 2016. Pharmacy Dosing Scope Pharmacy is consulted to initiate Vanco/Zosyn IV dosing therapy, order appropriate labs and adjust drug dose/frequency. Subjective The patient is a 61 year old female admitted on Nov 03, 2016 at 19:29. Objective Height (Feet): 5 Height (Inches): 6.00 Weight (Kilograms): 83.200 Lab Results (24hrs): Item Value Date Time Creatinine 4.80 mg/dl *H 11/04/16 0130 Est Creatinine Clear Calc Drug Dose 12.9 ml/min 11/04/16 0130 Laboratory Tests Test 11/03/16 17:00 11/03/16 22:18 11/04/16 01:30 BUN/Creatinine Ratio 16.3 15.7 16.1 Blood Urea Nitrogen 76 mg/dl 75 mg/dl 77 mg/dl Creatinine 4.80 mg/dl 4.80 mg/dl 4.80 mg/dl White Blood Count 8.60 K/uL 18.45 K/uL Red Blood Count 2.97 M/uL 2.74 M/uL Hemoglobin 9.4 g/dL 8.8 g/dL Hematocrit 30.8 % 28.1 % Mean Corpuscular Volume 103.7 fL 102.6 fL Mean Corpuscular Hemoglobin 31.6 pg 32.1 pg Mean Corpuscular Hemoglobin Concent 30.5 g/dl 31.3 g/dl Platelet Count 193 K/uL 211 K/uL Mean Platelet Volume 8.6 fL 9.4 fL Neutrophils (%) (Auto) 71.0 % 38.1 % Lymphocytes (%) (Auto) 18.3 % 51.4 % Monocytes (%) (Auto) 7.7 % 7.8 % Eosinophils (%) (Auto) 2.2 % 1.3 % Basophils (%) (Auto) 0.2 % 0.2 % Neutrophils # (Auto) 6.11 K/uL 7.03 K/uL Lymphocytes # (Auto) 1.57 K/uL 9.49 K/uL Monocytes # (Auto) 0.66 K/uL 1.43 K/uL Eosinophils # (Auto) 0.19 K/uL 0.24 K/uL Basophils # (Auto) 0.02 K/uL 0.04 K/uL Micro Results: Item Value Date Time Gram Stain Received 11/04/16 0500 Ulcer Knee Left Pending Gram Stain Received 11/04/16 0500 Sputum Expectorated Sputum Pending Blood Culture Received 11/03/16 2330 Blood Pending Blood Culture Received 11/03/16 2323 Blood Pending MRSA DNA Surveillance Screen - Final Complete 11/03/16 2116 Nasal Specimen Negative for MRSA by DNA Probe Urine Culture Received 11/03/16 1715 Urine,Catheterized Pending Assessment & Plan Pt is a 61yo F admitted with suspected UTI. Nitrites are positive which leads me to expect we may be dealing with a gram(-) pathogen. Pt is empirically being treated with Vanco/Zosyn. Pt's renal fxn is poor Scr=4.8 and eCrCL =12.9CC/min. Pt and her family are currently declining HD and Ms. Valdes only produced 425cc of urine on 11/03/16. Which means she is excreting very little Vancomycin. Will obtain a random lvl sp to assess what should be done next. She did receive a one time dose of Vanco 1700mg (20mg/kg) this AM at 0235. MRSA nasal was negative, all other c/s's are pending. Pt has a BMI of 30, she is at a risk of accumulating Vanco. Pt's EI Zosyn q12 is appropriate based on clinical picture and eCrCl <20cc/min Pharmacy will continue to follow and will adjust dose/frequency as necessary. Thank you
[2016-11-04] MEDS ORDERED: FERROUS SULFATE 325 MG TAB PO SCH (09:00)
[2016-11-04] MEDS ORDERED: LACTOBACILLUS ACIDOPHILUS (FLORANEX) TAB PO SCH (09:00)
[2016-11-04] MEDS ORDERED: FLUDROCORTISONE ACETATE 0.1 MG TAB PO SCH (09:00)
[2016-11-04] MEDS ORDERED: ALBUMIN 25% 50 ML with FUROSEMIDE INJ 80 MG IV SCH ×2 (09:00)
[2016-11-04] MEDS ORDERED: MULTIVITAMIN TAB PO SCH (09:00)
[2016-11-04] MEDS ORDERED: NURSING DECISION MEDICATION ORDER SCH (09:30)
--- NOTE | 2016-11-04 09:50 | DIAGNOSTIC IMAGING REPORT ---
SINGLE VIEW CHEST CLINICAL HISTORY: Respiratory failure. Intubation. FINDINGS: An AP, portable, upright chest radiograph is compared to study dated 11/03/2016. The examination is degraded by portable technique and patient rotation. An enteric tube projects below the diaphragm. An endotracheal tube projects 5.5 cm above the mendoza. The heart appears mildly enlarged. There is pulmonary vascular congestion. There are layering pleural effusions and bibasilar consolidation, left greater than right. No pneumothorax is seen. The skeletal structures are osteopenic. Advanced arthritic change is seen in the shoulders. IMPRESSION: 1. Endotracheal and enteric tubes have been placed as detailed above. 2. Cardiomegaly with evidence of congestive failure. 3. Layering pleural effusions, left larger the right with bibasilar consolidation. This could represent atelectasis. Correlate clinically for evidence of superimposed pneumonia. Electronically signed by: Amandeep Price M.D. 11/04/2016 9:48 AM Dictated Date/Time: 11/04/2016 9:45 AM
[2016-11-04] MEDS ORDERED: PERFLUTREN LIPID MICROSPHERE (DEFINITY) IV ONE (09:59)
[2016-11-04] MEDS ORDERED: MICONAZOLE NITRATE POWDER 43 GM EXT PRN (10:00)
[2016-11-04] MEDS ORDERED: [UNRECOGNIZED DRUG - OTHER] PRN (10:30)
--- NOTE | 2016-11-04 10:47 | Progress Note ---
Medicine Progress Note Date & Time of Visit: Nov 04, 2016 at 10:34. Subjective patient seen with brothers at bedside intubated, no sedation tried to open eyes and move arms occasionally not in distress no other symptoms Objective Last 8 Hrs Date Time Temp Pulse Resp B/P Pulse Ox O2 Delivery O2 Flow Rate FiO2 11/04/16 08:00 50 11/04/16 08:00 94 Mechanical Ventilator 50 11/04/16 08:00 36.7 125 23 124/77 93 Mechanical Ventilator 11/04/16 07:30 50 11/04/16 06:00 36.6 124 20 117/65 93 Mechanical Ventilator 50 11/04/16 05:15 50 11/04/16 05:00 36.7 124 20 111/65 94 Mechanical Ventilator 50 11/04/16 05:00 94 Mechanical Ventilator 50 11/04/16 05:00 50 11/04/16 04:00 36.2 119 20 97/55 94 Mechanical Ventilator 50 11/04/16 03:00 35.2 107 20 84/51 93 Mechanical Ventilator 35 Physical Exam: General- intubated, lethargic, not in distress, no accessory muscle use Head- atraumatic Eyes- PERRL, anicteric ENT- ET tube in place Neck- mild JVD Lungs- (+) crackles bilaterally Heart- normal rate, regular rhythm; no murmurs Abdomen- normal bowel sounds, soft, nontender Extremities- no pretibial edema, no calf tenderness; peripheral pulses intact Neuro- difficult to assess as patient intubated, pupils equal, (+) gag reflex Skin- warm & dry Laboratory Results: Last 24 Hours Test 11/03/16 17:00 11/03/16 17:08 11/03/16 17:15 11/03/16 22:18 White Blood Count 8.60 K/uL Red Blood Count 2.97 M/uL Hemoglobin 9.4 g/dL Hematocrit 30.8 % Mean Corpuscular Volume 103.7 fL Mean Corpuscular Hemoglobin 31.6 pg Mean Corpuscular Hemoglobin Concent 30.5 g/dl Platelet Count 193 K/uL Mean Platelet Volume 8.6 fL Neutrophils (%) (Auto) 71.0 % Lymphocytes (%) (Auto) 18.3 % Monocytes (%) (Auto) 7.7 % Eosinophils (%) (Auto) 2.2 % Basophils (%) (Auto) 0.2 % Neutrophils # (Auto) 6.11 K/uL Lymphocytes # (Auto) 1.57 K/uL Monocytes # (Auto) 0.66 K/uL Eosinophils # (Auto) 0.19 K/uL Basophils # (Auto) 0.02 K/uL RDW Standard Deviation 58.8 fL RDW Coefficient of Variation 16.0 % Immature Granulocyte % (Auto) 0.6 % Immature Granulocyte # (Auto) 0.05 K/uL Nucleated RBC Absolute Count (auto) 0.03 K/uL Nucleated Red Blood Cells % 0.3 % Prothrombin Time 10.2 SECONDS Prothromb Time International Ratio 1.0 Activated Partial Thromboplast Time 28.0 SECONDS Partial Thromboplastin Ratio 1.1 Sodium Level 143 mmol/L 146 mmol/L Potassium Level 5.8 mmol/L 5.0 mmol/L Chloride Level 107 mmol/L 109 mmol/L Carbon Dioxide Level 29 mmol/L 27 mmol/L Anion Gap 7.0 mmol/L 10.0 mmol/L Blood Urea Nitrogen 76 mg/dl 75 mg/dl Creatinine 4.80 mg/dl 4.80 mg/dl Est Creatinine Clear Calc Drug Dose 12.4 ml/min 12.9 ml/min Estimated GFR () 10.4 10.4 Estimated GFR (Non- 9.0 9.0 BUN/Creatinine Ratio 16.3 15.7 Random Glucose 122 mg/dl 52 mg/dl Calcium Level 10.7 mg/dl 10.6 mg/dl Total Bilirubin 0.2 mg/dl Aspartate Amino Transf (AST/SGOT) 18 U/L Alanine Aminotransferase (ALT/SGPT) 24 U/L Alkaline Phosphatase 198 U/L Troponin I < 0.015 ng/ml Total Protein 5.8 gm/dl Albumin 1.7 gm/dl Globulin 4.1 gm/dl Albumin/Globulin Ratio 0.4 Influenza Type A Antigen Neg for Influ A Influenza Type B Antigen Neg for Influ B Urine Color YELLOW Urine Appearance TURBID Urine pH 6.5 Urine Specific [place] 1.012 Urine Protein 3+ Urine Glucose (UA) NEG Urine Ketones NEG Urine Occult Blood 2+ Urine Nitrite POS Urine Bilirubin NEG Urine Urobilinogen NEG Urine Leukocyte Esterase LARGE Urine WBC (Auto) >30 /hpf Urine RBC (Auto) >30 /hpf Urine Hyaline Casts (Auto) 5-10 /lpf Urine Epithelial Cells (Auto) >30 /lpf Urine Bacteria (Auto) NEG Urine Pathogenic Casts /lpf Urine Yeast (Auto) PRESENT Test 11/03/16 23:23 11/03/16 23:29 11/04/16 00:00 11/04/16 01:30 Lactic Acid Level 1.3 mmol/L Bedside Glucose 61 mg/dl 96 mg/dl White Blood Count 18.45 K/uL Red Blood Count 2.74 M/uL Hemoglobin 8.8 g/dL Hematocrit 28.1 % Mean Corpuscular Volume 102.6 fL Mean Corpuscular Hemoglobin 32.1 pg Mean Corpuscular Hemoglobin Concent 31.3 g/dl Platelet Count 211 K/uL Mean Platelet Volume 9.4 fL Neutrophils (%) (Auto) 38.1 % Lymphocytes (%) (Auto) 51.4 % Monocytes (%) (Auto) 7.8 % Eosinophils (%) (Auto) 1.3 % Basophils (%) (Auto) 0.2 % Neutrophils # (Auto) 7.03 K/uL Lymphocytes # (Auto) 9.49 K/uL Monocytes # (Auto) 1.43 K/uL Eosinophils # (Auto) 0.24 K/uL Basophils # (Auto) 0.04 K/uL RDW Standard Deviation 58.8 fL RDW Coefficient of Variation 16.1 % Immature Granulocyte % (Auto) 1.2 % Immature Granulocyte # (Auto) 0.22 K/uL Nucleated RBC Absolute Count (auto) 0.21 K/uL Nucleated Red Blood Cells % 1.1 % Red Blood Cell Morphology Unremarkable Sodium Level 146 mmol/L Potassium Level 4.7 mmol/L Chloride Level 107 mmol/L Carbon Dioxide Level 28 mmol/L Anion Gap 11.0 mmol/L Blood Urea Nitrogen 77 mg/dl Creatinine 4.80 mg/dl Est Creatinine Clear Calc Drug Dose 12.9 ml/min Estimated GFR () 10.4 Estimated GFR (Non- 9.0 BUN/Creatinine Ratio 16.1 Random Glucose 341 mg/dl Calcium Level 9.8 mg/dl Magnesium Level 3.4 mg/dl Total Bilirubin 0.1 mg/dl Aspartate Amino Transf (AST/SGOT) 24 U/L Alanine Aminotransferase (ALT/SGPT) 25 U/L Alkaline Phosphatase 140 U/L Troponin I < 0.015 ng/ml Total Protein 5.0 gm/dl Albumin 1.6 gm/dl Globulin 3.4 gm/dl Albumin/Globulin Ratio 0.5 Beta-Hydroxybutyric Acid 5.08 mg/dL Test 11/04/16 01:45 11/04/16 04:00 11/04/16 04:29 11/04/16 07:48 Bedside Hemoglobin 9.9 g/dl Bedside Hematocrit 29 % Bedside Blood Gas pH (LAB) 7.23 7.38 Bedside Blood Gas pCO2 (LAB) 72 mmHg 47 mmHg Bedside Blood Gas pO2 (LAB) 273 mmHg 53 mmHg Bedside Blood Gas HCO3 (LAB) 30 meq/L 28 meq/L Bedside Blood Gas Total CO2 32 mEq/l 29 mEq/l Bedside Blood Gas Base Excess (LAB) 2.0 meq/L 2.0 meq/L Bedside Blood Gas O2 Saturation 100.0 % 87.0 % Bedside Sodium 140 mEq/L Bedside Potassium 4.5 mEq/L Blood Gas Sample Site R Radial Alfredo Test Pass Oxygen Delivery Device Ventilator Bedside Oxygen Rate (breaths/min) 20 Blood Gas Minute Ventilation 7.4 Bedside FiO2 40 % Blood Gas Tidal Volume 400 Blood Gas PEEP 5 Bedside Glucose 144 mg/dl 138 mg/dl Test 11/04/16 10:05 Date/Time Source Procedure Growth Status 11/03/16 23:30 Blood Blood Culture Pending Received 11/03/16 23:23 Blood Blood Culture Pending Received 11/03/16 21:16 Nasal MRSA DNA Surveillance Screen - Final Specimen Negative for MRSA by DNA Probe Complete 11/04/16 05:00 Sputum Expectorated Sputum Gram Stain - Final Resulted 11/04/16 05:00 Sputum Expectorated Sputum Sputum Culture Pending Resulted 11/03/16 17:15 Urine,Catheterized Urine Culture Pending Received 11/04/16 05:00 Ulcer Knee Left Gram Stain Pending Received 11/04/16 05:00 Ulcer Knee Left Wound Culture Pending Received Assessment & Plan 61 year old female with history of MR, DM, CKD 4, Adrenal Insufficiency presenting with lethargy, weakness CARDIOPULMONARY ARREST LIKELY FROM ACUTE HYPOXIC RESPIRATORY FAILURE FROM: PULMONARY EDEMA, IN THE SETTING OF ACUTE RENAL FAILURE ON CKD 4 POSSIBLE BILATERAL PNEUMONIA - family declining Dialysis Nephrology recommending Lasix + Albumin; held due to hypotension Echo pending - Vanc, Invanz + Levaquin ordered - [facility] Vent management per [facility]le Attacher HYPOTHERMIA, LIKELY FROM: UNDERLYING INFECTION- PNEUMONIA ADRENAL INSUFFICIENCY - improving - cultures pending- blood, urine, sputum on empiric Vanc, Invanz, Levaquin - Solumedrol changed to Hydrocortisone 50mg IV q6h HYPERKALEMIA, HYPERCALCEMIA - resolving given Insulin ALTERED MENTAL STATUS - likely multifactorial due to above - CT head pending ADRENAL INSUFFICIENCY - chronically on prednisone and Florinef - now on hydrocortisone DM - hgb a1c 6.2 05/2016 - hold oral agents and utilize SSI while hospitalized DVT PROPHYLAXIS - SCDs due to anemia and history of perforated ulcer CODE STATUS - DNR per Dr. Avila's discussion with family last night DISPO pending Current Inpatient Medications: Current Inpatient Medications Medications (Trade) Dose Ordered Sig/Yas Route Start Time Stop Time Status Last Admin Dose Admin Ondansetron HCl (Zofran Inj) 4 mg Q6H PRN IV 11/03/16 19:30 12/03/16 19:29 Fludrocortisone Acetate (Florinef Tab) 0.1 mg DAILY PO 11/04/16 09:00 12/04/16 08:59 11/04/16 10:26 0.1 MG Glucose (Glucose 40% Gel) 15-30 GRAMS 15 GRAMS... UD PRN PO 11/03/16 20:00 12/03/16 19:59 Glucose (Glucose Chew Tab) 4-8 Tablets 4 Tabl... UD PRN PO 11/03/16 20:00 12/03/16 19:59 Dextrose (Dextrose 50% 50ML Syringe) 25-50ML OF 50% DW IV FOR... UD PRN IV 11/03/16 20:00 12/03/16 19:59 11/03/16 23:38 25 ML Glucagon (Glucagon Inj) 1 mg UD PRN SQ 11/03/16 20:00 12/03/16 19:59 Vancomycin HCl (Consult) 1 ea UD PRN N/A 11/04/16 02:15 12/04/16 02:14 Hydromorphone HCl 0.5 mg 0.5 mg Q3H PRN IV 11/04/16 02:15 11/18/16 02:14 Methylprednisolone Sodium Succinate 40 mg/Syringe 0.64 ml @ 1.5 mls/min Q8H IV 11/04/16 12:00 12/04/16 11:59 Pantoprazole Sodium/Syringe (Protonix Inj/ Syringe) 10 ml @ 5 mls/min DAILY@1100 IV 11/04/16 11:00 12/04/16 10:59 Insulin Glargine (Lantus Solostar Pen) 10 unit DAILY SC 11/05/16 09:00 12/05/16 08:59 Ipratropium [place] (Atrovent Hfa Inhaler) 4 puffs Q6R INH 11/04/16 09:00 12/04/16 08:59 11/04/16 07:30 4 PUFFS Levalbuterol (Xopenex Hfa Inhaler) 4 puffs Q6R INH 11/04/16 09:00 12/04/16 08:59 11/04/16 07:30 4 PUFFS Miconazole Nitrate (Desenex Powder) 1 appln PRN PRN EXT 11/04/16 10:00 12/04/16 09:59 Miscellaneous Information 1 ea 1 ea UD PRN N/A 11/04/16 10:30 12/04/16 10:29 Ertapenem/Sodium Chloride (Invanz Iv/Nss 50ml) 55 ml @ 110 mls/hr DAILY@1100 IV 11/04/16 11:00 11/14/16 10:59
--- NOTE | 2016-11-04 10:57 | DIAGNOSTIC IMAGING REPORT ---
SINGLE VIEW CHEST CLINICAL HISTORY: Respiratory failure. Intubation. FINDINGS: An AP, portable, upright chest radiograph is compared to study performed earlier the same day 11/04/2016. The examination is degraded by portable technique and patient rotation. Endotracheal and enteric tubes are unchanged in position. The heart appears mildly enlarged. There is pulmonary vascular congestion. There are layering pleural effusions and bibasilar consolidation, left greater than right. No pneumothorax is seen. The skeletal structures are osteopenic. Advanced arthritic change is seen in the shoulders. IMPRESSION: 1. Stable lines and tubes. 2. Cardiomegaly with evidence of congestive failure as well as layering pleural effusions and bibasilar consolidation. This is unchanged from earlier today. Electronically signed by: Amandeep Price M.D. 11/04/2016 10:56 AM Dictated Date/Time: 11/04/2016 10:54 AM
[2016-11-04] MEDS ORDERED: HYDROCORTISONE IV 50 MG in SYRINGE 0 ML IV SCH (11:00)
[2016-11-04] MEDS ORDERED: ERTAPENEM IV 500 MG in SODIUM CHLORIDE 0.9% 50 ML IV SCH (11:00)
[2016-11-04] MEDS ORDERED: INSULIN ASPART 100 UNITS/ML 3 ML PEN SC SCH (11:00)
[2016-11-04] MEDS ORDERED: PANTOprazole INJ 40 MG in SYRINGE 0 ML IV SCH (11:00)
[2016-11-04] MEDS ORDERED: METHYLPREDNISOLONE IV 40 MG in SYRINGE 0 ML IV SCH (12:00)
[2016-11-04] MEDS ORDERED: AZTREONAM CONSULT ACTIVE PRN ×2 (12:30)
[2016-11-04] MEDS ORDERED: AZTREONAM IV 1,000 MG in DEXTROSE 5% 100ML IV ONE (13:00)
--- NOTE | 2016-11-04 14:11 | ECHOCARDIOGRAM REPORT ---
*NOTICE TO RECEIVING DEMOCRAT AGENCY This information is strictly Confidential and protected under [place] law. [place] law prohibits you from making any further disclosure of this information unless further disclosure is expressly permitted by the written consent of the person to whom it pertains or is authorized by law. A general authorization for the release of medical or other information is not sufficient for this purpose. Hospital accepts no responsibility if the information is made available to any other person, INCLUDING THE PATIENT. Interpretation Summary * Name: MAXIM DUKE Study Date: 11/04/2016 09:26 AM BP: 117/65 mmHg * [facility] HR: 124 * : 1955 (M/d/yyyy) Gender: Female Height: 66 in * Age: 61 yrs Ethnicity: [place] Weight: 165 lb * Ordering Physician: Alea Romo * Referring Physician: Araceli Lawler I. * Performed By: Donna Garza RDCS * * Reason For Study: Volume overload * BSA: 1.8 m2 * -- Conclusions -- * Sinus tachycardia, rate 120 bpm * The left ventricle is normal in size. * There is moderate concentric left ventricular hypertrophy. * The left ventricular wall motion is normal. * Ejection Fraction = 60-65%. * Aortic valve sclerosis mild, without significant aortic valvular stenosis. * Significant mitral regurgitation is absent. * Large left pleural effusion. Procedure Details * A complete two-dimensional transthoracic echocardiogram was performed (2D, M-mode, Doppler and color flow Doppler). Left Ventricle * The left ventricle is normal in size. * There is moderate concentric left ventricular hypertrophy. * Ejection Fraction = 60-65%. * The left ventricular wall motion is normal. Mitral Valve * There is mild mitral annular calcification. * There is no mitral valve stenosis. * Significant mitral regurgitation is absent. Tricuspid Valve * The tricuspid valve is not well visualized. Aortic Valve * The aortic valve is not well visualized. * Aortic valve sclerosis mild, without significant aortic valvular stenosis. * Trace aortic regurgitation. Pulmonic Valve * The pulmonic valve is not well visualized. Great Vessels * The aortic root is normal size. Pericardium/Pleural * Large left pleural effusion. MMode 2D Measurements and Calculations IVSd 1.2 cm LVIDd 3.6 cm LVIDs 2.6 cm LVPWd 1.2 cm IVS/LVPW 1.0 FS 28.0 % EDV(Teich) 53.3 ml ESV(Teich) 23.9 ml EF(Teich) 55.2 % EDV(cubed) 45.5 ml ESV(cubed) 17.0 ml EF(cubed) 62.7 % LV mass(C)d 139.2 grams LV mass(C)dI 75.5 grams/m\S\2 CO(Teich) 3.6 l/min CI(Teich) 1.9 l/min/m\S\2 SV(Teich) 29.4 ml SI(Teich) 16.0 ml/m\S\2 CO(cubed) 3.5 l/min CI(cubed) 1.9 l/min/m\S\2 SV(cubed) 28.5 ml SI(cubed) 15.5 ml/m\S\2 Ao root diam 2.4 cm Ao root area 4.5 cm\S\2 LA dimension 2.7 cm asc Aorta Diam 3.0 cm LA/Ao 1.1 LVAd ap4 19.1 cm\S\2 LVLd ap4 5.9 cm EDV(MOD-sp4) 49.7 ml LVAs ap4 11.2 cm\S\2 LVLs ap4 4.5 cm ESV(MOD-sp4) 23.2 ml EF(MOD-sp4) 53.3 % LVAd ap2 16.7 cm\S\2 LVLd ap2 6.6 cm EDV(MOD-sp2) 35.2 ml LVAs ap2 9.7 cm\S\2 LVLs ap2 5.2 cm ESV(MOD-sp2) 15.6 ml EF(MOD-sp2) 55.7 % CO(MOD-sp4) 3.2 l/min CI(MOD-sp4) 1.7 l/min/m\S\2 SV(MOD-sp4) 26.5 ml SI(MOD-sp4) 14.4 ml/m\S\2 CO(MOD-sp2) 2.4 l/min CI(MOD-sp2) 1.3 l/min/m\S\2 SV(MOD-sp2) 19.6 ml SI(MOD-sp2) 10.6 ml/m\S\2 Doppler Measurements and Calculations Ao V2 max 229.9 cm/sec Ao max PG 21.2 mmHg Ao max PG (full) 17.2 mmHg Ao V2 mean 148.1 cm/sec Ao mean PG 10.4 mmHg Ao V2 VTI 30.4 cm AI max carine 401.8 cm/sec AI max PG 64.6 mmHg AI dec slope 392.6 cm/sec\S\2 AI P1/2t 299.7 msec LV V1 max PG 4.0 mmHg LV V1 max 100.4 cm/sec SV(Ao) 136.5 ml SI(Ao) 74.1 ml/m\S\2 PA V2 max 101.8 cm/sec PA max PG 4.1 mmHg PA acc slope 477.2 cm/sec\S\2 PA acc time 0.10 sec TR max carine 177.4 cm/sec PA pr(Accel) 34.6 mmHg
[2016-11-04] MEDS ORDERED: MoRPHine SULF/NSS 250MG/250ML 250 ML IV PRN (15:30)
[2016-11-04] MEDS ORDERED: MIDAZOLAM 125MG/250ML D5W 250 ML IV PRN (15:30)
--- NOTE | 2016-11-04 15:42 | Critical Care Consultation ---
Critical Care Consultation Date of Consultation: Nov 04, 2016. 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 Patient has had steadily declining health of the past several months to years. Most notably she was evaluated for dialysis and was not considered a strong candidate, and the family agreed. Concurrently risk her recent movement admission she likely has a urinary tract infection leading to sepsis, she is volume overloaded, has a large left pleural effusion, and could possibly have ejection fraction preserved heart failure. Approximately 2 AM in the morning the patient had a CODE BLUE while in the CT scan room awaiting a noncontrast scan of the head. Patient received approximately 5-10 minutes worth of CPR, please see CPR record for additional details. During this arrest the patient was intubated, found to have profound significant pulmonary edema. This was also witnessed by the patient's sister who has been her primary caregiver. Was were able to achieve return of spontaneous circulation and stabilize the patient I discussed the goals of care with the patient's sister. She stated the patient's mother and father and entire family were not in favor of heroic measures including central lines arterial lines, CPR, electrical shocks. Accordingly patient's CODE STATUS was changed to DO NOT RESUSCITATE in event of cardiac arrest. Later in the day I had the opportunity to speak with the patient's mother and father as well as 2 brothers. All winter in agreement that the patient has been continuing to steadily decline, she would not want aggressive measures including but not limited to dialysis, chest tubes, central lines. Accordingly they have requested we transitioned comfort measures and stop life-prolonging interventions at this time. 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 Diabetes mellitus type 2 History of peptic ulcer History of renal calculi Recurrent UTIs: Escherichia coli Status post bilateral hip replacement Status post partial gastrectomy All of this was obtained from prior records Family History Hypertension FATHER MOTHER Social History Smoking Status: Never Smoker Alcohol Use: none Housing Status: lives with family Occupation Status: disabled Allergies Coded Allergies: Ciprofloxacin (Verified Allergy, Intermediate, HIVES, 11/03/16) Clavulanic Acid (Verified Allergy, Intermediate, HIVES, 11/03/16) Oxycodone (Verified Allergy, Intermediate, HIVES,BLISTERS; HAS TOLERATED MORPHINE, 1/20/17) Penicillins (Verified Allergy, Intermediate, HIVES (TOLERATES IMIPENEM), TOLERATED ZOSYN, 11/03/16) Propoxyphene (Verified Allergy, Intermediate, Rash; tolerates Tylenol, ) Replaces DARVOCET-N 10 Cephalosporins (Verified Allergy, Unknown, KEFLEX (TOLERATES IMIPENEM), ) Metronidazole (Verified Allergy, Unknown, RASH, 11/03/16) Nitrofurantoin (Verified Allergy, Unknown, 11/03/16) Quinolones (Verified Allergy, Unknown, CIPRO, 11/03/16) Sulfa Antibiotics (Verified Allergy, Unknown, HIVES TO SULFA DRUGS, ) Azithromycin (Verified Adverse Reaction, Mild, VOMITING, 11/03/16) Home Medications Scheduled Amoxicillin (Amoxil), 250 MG PO DAILY Ascorbic Acid (Vitamin C), 500 MG PO QAM Calcium Acetate (Phoslo 667 Mg), 1 CAP PO WM Cefdinir (Cefdinir), 300 MG PO DAILY Chlorpromazine Hcl (Thorazine), 25 MG PO AMPM Cholecalciferol (Vitamin D3), 1,000 INTER.UNIT PO DAILY Cranberry-Vitamin C-Vitamin E (Cranberry), 2 CAP PO BID Docusate Sodium (Docusate Sodium), 100 MG PO BID Doxycycline Hyclate (Doxycycline Hyclate), 100 MG PO DAILY Epoetin Willie (Procrit), 10,000 UNIT SC EVERY OTHER WEEK Ferrous Sulfate (Ferrous Sulfate), 325 MG PO QAM Fludrocortisone Acetate (Florinef), 1 TAB PO DAILY Fluoxetine (Prozac), 10 MG PO HS Furosemide (Lasix), 20 MG PO BID Lactobacillus Rhamnosus (GG) (Culturelle), 1 CAP PO QAM Linagliptin (Tradjenta), 5 MG PO QAM Magnesium Chloride (Slow-Mag Tab), 128 MG PO QAM Multivitamin (Multivitamin), 1 TAB PO DAILY Prednisone (Prednisone), 1 MG PO BID Ranitidine Hcl (Zantac), 300 MG PO BID Triamcinolone Acet (Triamcinolone Acetonide), 1 APPLN TOP UD Scheduled PRN Fluconazole (Fluconazole), 150 MG PO DAILY PRN for PRN Current Inpatient Medications Current Inpatient Medications Medications (Trade) Dose Ordered Sig/Yas Route Start Time Stop Time Status Last Admin Dose Admin Ondansetron HCl (Zofran Inj) 4 mg Q6H PRN IV 11/03/16 19:30 12/03/16 19:29 Glucose (Glucose 40% Gel) 15-30 GRAMS 15 GRAMS... UD PRN PO 11/03/16 20:00 12/03/16 19:59 Glucose (Glucose Chew Tab) 4-8 Tablets 4 Tabl... UD PRN PO 11/03/16 20:00 12/03/16 19:59 Dextrose (Dextrose 50% 50ML Syringe) 25-50ML OF 50% DW IV FOR... UD PRN IV 11/03/16 20:00 12/03/16 19:59 11/03/16 23:38 25 ML Glucagon (Glucagon Inj) 1 mg UD PRN SQ 11/03/16 20:00 12/03/16 19:59 Scopolamine (Transderm-Scop Patch) 1.5 mg Q3D@0900 TD 11/04/16 16:00 12/04/16 15:59 Miscellaneous (Remove Transderm-Scop Patch) 1 ea Q3D@0859 N/A 11/04/16 15:59 12/04/16 15:58 Miscellaneous Information 1 ea 1 ea QS N/A 11/04/16 16:00 12/04/16 15:59 Morphine Sulfate/ Dextrose 250 ml @ 0 mls/hr Q0M PRN IV 11/04/16 15:30 11/18/16 15:29 Midazolam HCl (Midazolam 125MG/ 250ML D5w) 250 ml @ 0 mls/hr Q0M PRN IV 11/04/16 15:30 12/04/16 15:29 Review of Systems Unable to obtain due to patient condition Physical Exam Date Time Temp Pulse Resp B/P Pulse Ox O2 Delivery O2 Flow Rate FiO2 11/04/16 14:14 40 11/04/16 14:00 37.4 120 20 115/63 95 Mechanical Ventilator 11/04/16 12:00 40 11/04/16 12:00 37.0 117 20 132/69 95 Mechanical Ventilator 11/04/16 12:00 96 Mechanical Ventilator 40 11/04/16 11:18 40 11/04/16 10:00 120 20 130/68 97 Mechanical Ventilator 11/04/16 08:00 50 11/04/16 08:00 94 Mechanical Ventilator 50 11/04/16 08:00 36.7 125 23 124/77 93 Mechanical Ventilator 11/04/16 07:30 50 11/04/16 06:00 36.6 124 20 117/65 93 Mechanical Ventilator 50 11/04/16 05:15 50 11/04/16 05:00 36.7 124 20 111/65 94 Mechanical Ventilator 50 11/04/16 05:00 94 Mechanical Ventilator 50 11/04/16 05:00 50 11/04/16 04:00 36.2 119 20 97/55 94 Mechanical Ventilator 50 11/04/16 03:00 35.2 107 20 84/51 93 Mechanical Ventilator 35 11/04/16 02:30 40 11/04/16 01:54 60 11/04/16 01:40 34.1 108 20 169/90 100 Mechanical Ventilator 100 11/04/16 00:00 34.0 97 20 149/73 92 Nasal Cannula 4.0 11/04/16 00:00 Nasal Cannula 4.0 11/03/16 20:55 33.9 98 20 159/79 99 Nasal Cannula 2.0 11/03/16 18:09 36.8 88 16 188/93 99 11/03/16 17:44 88 11/03/16 17:27 98 Room Air 11/03/16 16:44 88 18 166/81 94 Room Air Laboratory Results Last 24 Hours Test 11/03/16 17:00 11/03/16 17:08 11/03/16 17:15 11/03/16 22:18 White Blood Count 8.60 K/uL Red Blood Count 2.97 M/uL Hemoglobin 9.4 g/dL Hematocrit 30.8 % Mean Corpuscular Volume 103.7 fL Mean Corpuscular Hemoglobin 31.6 pg Mean Corpuscular Hemoglobin Concent 30.5 g/dl Platelet Count 193 K/uL Mean Platelet Volume 8.6 fL Neutrophils (%) (Auto) 71.0 % Lymphocytes (%) (Auto) 18.3 % Monocytes (%) (Auto) 7.7 % Eosinophils (%) (Auto) 2.2 % Basophils (%) (Auto) 0.2 % Neutrophils # (Auto) 6.11 K/uL Lymphocytes # (Auto) 1.57 K/uL Monocytes # (Auto) 0.66 K/uL Eosinophils # (Auto) 0.19 K/uL Basophils # (Auto) 0.02 K/uL RDW Standard Deviation 58.8 fL RDW Coefficient of Variation 16.0 % Immature Granulocyte % (Auto) 0.6 % Immature Granulocyte # (Auto) 0.05 K/uL Nucleated RBC Absolute Count (auto) 0.03 K/uL Nucleated Red Blood Cells % 0.3 % Prothrombin Time 10.2 SECONDS Prothromb Time International Ratio 1.0 Activated Partial Thromboplast Time 28.0 SECONDS Partial Thromboplastin Ratio 1.1 Sodium Level 143 mmol/L 146 mmol/L Potassium Level 5.8 mmol/L 5.0 mmol/L Chloride Level 107 mmol/L 109 mmol/L Carbon Dioxide Level 29 mmol/L 27 mmol/L Anion Gap 7.0 mmol/L 10.0 mmol/L Blood Urea Nitrogen 76 mg/dl 75 mg/dl Creatinine 4.80 mg/dl 4.80 mg/dl Est Creatinine Clear Calc Drug Dose 12.4 ml/min 12.9 ml/min Estimated GFR () 10.4 10.4 Estimated GFR (Non- 9.0 9.0 BUN/Creatinine Ratio 16.3 15.7 Random Glucose 122 mg/dl 52 mg/dl Calcium Level 10.7 mg/dl 10.6 mg/dl Total Bilirubin 0.2 mg/dl Aspartate Amino Transf (AST/SGOT) 18 U/L Alanine Aminotransferase (ALT/SGPT) 24 U/L Alkaline Phosphatase 198 U/L Troponin I < 0.015 ng/ml Total Protein 5.8 gm/dl Albumin 1.7 gm/dl Globulin 4.1 gm/dl Albumin/Globulin Ratio 0.4 Influenza Type A Antigen Neg for Influ A Influenza Type B Antigen Neg for Influ B Urine Color YELLOW Urine Appearance TURBID Urine pH 6.5 Urine Specific [place] 1.012 Urine Protein 3+ Urine Glucose (UA) NEG Urine Ketones NEG Urine Occult Blood 2+ Urine Nitrite POS Urine Bilirubin NEG Urine Urobilinogen NEG Urine Leukocyte Esterase LARGE Urine WBC (Auto) >30 /hpf Urine RBC (Auto) >30 /hpf Urine Hyaline Casts (Auto) 5-10 /lpf Urine Epithelial Cells (Auto) >30 /lpf Urine Bacteria (Auto) NEG Urine Pathogenic Casts /lpf Urine Yeast (Auto) PRESENT Test 11/03/16 23:23 11/03/16 23:29 11/04/16 00:00 11/04/16 01:30 Lactic Acid Level 1.3 mmol/L Bedside Glucose 61 mg/dl 96 mg/dl White Blood Count 18.45 K/uL Red Blood Count 2.74 M/uL Hemoglobin 8.8 g/dL Hematocrit 28.1 % Mean Corpuscular Volume 102.6 fL Mean Corpuscular Hemoglobin 32.1 pg Mean Corpuscular Hemoglobin Concent 31.3 g/dl Platelet Count 211 K/uL Mean Platelet Volume 9.4 fL Neutrophils (%) (Auto) 38.1 % Lymphocytes (%) (Auto) 51.4 % Monocytes (%) (Auto) 7.8 % Eosinophils (%) (Auto) 1.3 % Basophils (%) (Auto) 0.2 % Neutrophils # (Auto) 7.03 K/uL Lymphocytes # (Auto) 9.49 K/uL Monocytes # (Auto) 1.43 K/uL Eosinophils # (Auto) 0.24 K/uL Basophils # (Auto) 0.04 K/uL RDW Standard Deviation 58.8 fL RDW Coefficient of Variation 16.1 % Immature Granulocyte % (Auto) 1.2 % Immature Granulocyte # (Auto) 0.22 K/uL Nucleated RBC Absolute Count (auto) 0.21 K/uL Nucleated Red Blood Cells % 1.1 % Red Blood Cell Morphology Unremarkable Sodium Level 146 mmol/L Potassium Level 4.7 mmol/L Chloride Level 107 mmol/L Carbon Dioxide Level 28 mmol/L Anion Gap 11.0 mmol/L Blood Urea Nitrogen 77 mg/dl Creatinine 4.80 mg/dl Est Creatinine Clear Calc Drug Dose 12.9 ml/min Estimated GFR () 10.4 Estimated GFR (Non- 9.0 BUN/Creatinine Ratio 16.1 Random Glucose 341 mg/dl Calcium Level 9.8 mg/dl Magnesium Level 3.4 mg/dl Total Bilirubin 0.1 mg/dl Aspartate Amino Transf (AST/SGOT) 24 U/L Alanine Aminotransferase (ALT/SGPT) 25 U/L Alkaline Phosphatase 140 U/L Troponin I < 0.015 ng/ml Total Protein 5.0 gm/dl Albumin 1.6 gm/dl Globulin 3.4 gm/dl Albumin/Globulin Ratio 0.5 Beta-Hydroxybutyric Acid 5.08 mg/dL Test 11/04/16 01:45 11/04/16 04:00 11/04/16 04:29 11/04/16 07:48 Bedside Hemoglobin 9.9 g/dl Bedside Hematocrit 29 % Bedside Blood Gas pH (LAB) 7.23 7.38 Bedside Blood Gas pCO2 (LAB) 72 mmHg 47 mmHg Bedside Blood Gas pO2 (LAB) 273 mmHg 53 mmHg Bedside Blood Gas HCO3 (LAB) 30 meq/L 28 meq/L Bedside Blood Gas Total CO2 32 mEq/l 29 mEq/l Bedside Blood Gas Base Excess (LAB) 2.0 meq/L 2.0 meq/L Bedside Blood Gas O2 Saturation 100.0 % 87.0 % Bedside Sodium 140 mEq/L Bedside Potassium 4.5 mEq/L Blood Gas Sample Site R Radial Alfredo Test Pass Oxygen Delivery Device Ventilator Bedside Oxygen Rate (breaths/min) 20 Blood Gas Minute Ventilation 7.4 Bedside FiO2 40 % Blood Gas Tidal Volume 400 Blood Gas PEEP 5 Bedside Glucose 144 mg/dl 138 mg/dl Test 11/04/16 10:05 11/04/16 11:12 Random Vancomycin Level 26.0 mcg/ml Bedside Glucose 124 mg/dl Assessment & Plan Impression #1 status post cardiac arrest -Likely a respiratory arrest leading to cardiac arrest #2 large left-sided pleural effusion Family does not desire aggressive intervention at this time, likely secondary to chronic kidney disease #3 chronic kidney disease stage IV -Patient not a candidate for dialysis, doubt we will be able to obtain significant volume control with Lasix and albumin #4 pulmonary edema -Likely secondary to volume overload #5 sepsis -Gram-negative bacilli obtained from urine, history of Escherichia coli tract infections, this is most likely source #6 renal insufficiency -On stress dose steroids #7 Diabetes mellitus type 2 Continue Accu-Cheks #8 for vascular access, currently infusing infusions through IO Line in left shoulder placed during cardiac arrest - IV team and nursing staff unable to place a second IV - Family declined advanced access #8 profound mental deficiency Plan: After extensive discussion with the patient's mother and father, and extended family and will focus on comfort measures only and stop life prolonging interventions. I believe the patient is in a end-stage terminal condition without chance of meaningful recovery. I agree with comfort measures, accordingly we have started morphine in event of hypoxic distress, and will extubate the patient. I have personally spent 95 minutes of critical care time in the direct management of this patient. This is a life/limb threatening event. This includes time spent evaluating patient, direct bedside care, chart review, placing orders, interpretation of diagnostic studies, discussion with consultants, patient, and family members, as well as other required patient management activities. This time is exclusive of all separately billable procedures, and teaching time and separate from and in addition to any other critical care service time.
[2016-11-04] MEDS: CHECK SCOPOLAMINE PATCH PLACEMENT SCH (16:00)
[2016-11-04] MEDS ORDERED: SCOPOLAMINE 1.5 MG TDSY TD SCH (16:00)
[2016-11-04] MEDS ORDERED: FLUCONAZOLE 100MG / NSS IV SCH (21:00)
[2016-11-05] MEDS: CHECK SCOPOLAMINE PATCH PLACEMENT SCH ×3 (00:02→16:00)
[2016-11-05] MEDS ORDERED: AZTREONAM IV 500 MG in DEXTROSE 5% 100ML 100 ML IV SCH (01:00)
--- NOTE | 2016-11-05 08:00 | Critical Care Progress Note ---
Critical Care Progress Note Date of Service Nov 05, 2016. ICU Day ICU Day Number: [address] Caballero Subjective Patient resting comfortably in bed, sister at her bedside Objective Gen.: Resting comfortably taking deep breaths Assessment & Plan #1 status post cardiac arrest -Likely a respiratory arrest leading to cardiac arrest #2 large left-sided pleural effusion Family does not desire aggressive intervention at this time, likely secondary to chronic kidney disease #3 chronic kidney disease stage IV -Patient not a candidate for dialysis, doubt we will be able to obtain significant volume control with Lasix and albumin #4 pulmonary edema -Likely secondary to volume overload #5 sepsis -Pseudomonas from urine and sputum isolates #6 renal insufficiency #7 profound mental deficiency Plan - Patient is a terminal end-stage condition without chance of meaningful recovery. We're focusing on comfort measures, but are no longer engage in life prolonging interventions. Hospice team consultation and may be transferred out of the ICU. Family has been appropriately grieving, there is active food processing plant manager support for the family. Data Medications: Current Inpatient Medications Medications (Trade) Dose Ordered Sig/Yas Route Start Time Stop Time Status Last Admin Dose Admin Ondansetron HCl (Zofran Inj) 4 mg Q6H PRN IV 11/03/16 19:30 12/03/16 19:29 Scopolamine (Transderm-Scop Patch) 1.5 mg Q3D@0900 TD 11/04/16 16:00 12/04/16 15:59 11/04/16 15:36 1.5 MG Miscellaneous (Remove Transderm-Scop Patch) 1 ea Q3D@0859 N/A 11/04/16 15:59 12/04/16 15:58 Miscellaneous Information 1 ea 1 ea QS N/A 11/04/16 16:00 12/04/16 15:59 11/05/16 07:23 1 EA Morphine Sulfate/ Dextrose 250 ml @ 0 mls/hr Q0M PRN IV 11/04/16 15:30 11/18/16 15:29 11/04/16 15:35 2 MLS/HR Midazolam HCl (Midazolam 125MG/ 250ML D5w) 250 ml @ 0 mls/hr Q0M PRN IV 11/04/16 15:30 12/04/16 15:29 I & O: 24-Hour Column 11/05/16 08:00 Intake Total 510 ml Output Total 330 ml Balance 180 ml Vital Signs: Date Time Temp Pulse Resp B/P Pulse Ox O2 Delivery O2 Flow Rate FiO2 11/04/16 14:14 40 11/04/16 14:00 37.4 120 20 115/63 95 Mechanical Ventilator 11/04/16 12:00 40 11/04/16 12:00 37.0 117 20 132/69 95 Mechanical Ventilator 11/04/16 12:00 96 Mechanical Ventilator 40 11/04/16 11:18 40 11/04/16 10:00 120 20 130/68 97 Mechanical Ventilator 11/04/16 08:00 50 11/04/16 08:00 94 Mechanical Ventilator 50 11/04/16 08:00 36.7 125 23 124/77 93 Mechanical Ventilator Laboratory Results: Last 24 Hours Test 11/04/16 10:05 11/04/16 11:12 Random Vancomycin Level 26.0 mcg/ml Bedside Glucose 124 mg/dl
[2016-11-05] MEDS ORDERED: INSULIN GLARGINE SOLOSTAR 100 UNITS/ML 3 ML PEN SC SCH (09:00)
[2016-11-05 15:00] VITALS: PULSE 112; O2SAT 94
[2016-11-05] MEDS ORDERED: SCOPOLAMINE 1.5 MG TDSY TD SCH (19:00)
--- NOTE | 2016-11-05 21:14 | Progress Note ---
Medicine Progress Note Date & Time of Visit: Nov 05, 2016 at 21:10. Subjective transitioned to comfort measures yesterday seen with family at bedside patient comfortable, no signs of distress, pain as per family on exam, patient on morphine drip, comfortable, peaceful no signs of pain Objective Last 8 Hrs Date Time Temp Pulse Resp B/P Pulse Ox O2 Delivery O2 Flow Rate FiO2 11/05/16 15:00 112 94 4.0 Physical Exam: general- not in distress, no accessory muscle use, obtunded lungs- mild rhonchi bilaterally extremities- mild edema Assessment & Plan 61 year old female with history of MR, DM, CKD 4, Adrenal Insufficiency presenting with lethargy, weakness CARDIOPULMONARY ARREST LIKELY FROM ACUTE HYPOXIC RESPIRATORY FAILURE FROM: PULMONARY EDEMA, IN THE SETTING OF ACUTE RENAL FAILURE ON CKD 4 POSSIBLE BILATERAL PNEUMONIA - family declining Dialysis Nephrology recommending Lasix + Albumin; held due to hypotension - Vanc, Invanz + Levaquin ordered - extubated yesterday, transitioned to comfort measures after discussion with family continue Morphine drip, PRN Scopolomine HYPOTHERMIA, LIKELY FROM: UNDERLYING INFECTION- PNEUMONIA ADRENAL INSUFFICIENCY - cultures ordered - blood, urine, sputum was on empiric Vanc, Invanz, Levaquin - Solumedrol was changed to Hydrocortisone 50mg IV q6h HYPERKALEMIA, HYPERCALCEMIA given Insulin ALTERED MENTAL STATUS - likely multifactorial due to above ADRENAL INSUFFICIENCY - chronically on prednisone and Florinef - placed on hydrocortisone DM - hgb a1c 6.2 05/2016 - held oral agents and utilized SSI while hospitalized DVT PROPHYLAXIS - SCDs due to anemia and history of perforated ulcer CODE STATUS - DNR DISPO pending Current Inpatient Medications: Current Inpatient Medications Medications (Trade) Dose Ordered Sig/Yas Route Start Time Stop Time Status Last Admin Dose Admin Ondansetron HCl (Zofran Inj) 4 mg Q6H PRN IV 11/03/16 19:30 12/03/16 19:29 Miscellaneous Information 1 ea 1 ea QS N/A 11/04/16 16:00 12/04/16 15:59 11/05/16 07:23 1 EA Morphine Sulfate/ Dextrose 250 ml @ 0 mls/hr Q0M PRN IV 11/04/16 15:30 11/18/16 15:29 11/04/16 15:35 2 MLS/HR Midazolam HCl (Midazolam 125MG/ 250ML D5w) 250 ml @ 0 mls/hr Q0M PRN IV 11/04/16 15:30 12/04/16 15:29 Scopolamine (Transderm-Scop Patch) 1.5 mg Q3D@1900 TD 11/05/16 19:00 12/05/16 18:59 11/05/16 20:13 1.5 MG Miscellaneous (Remove Transderm-Scop Patch) 1 ea Q3D@1900 N/A 11/08/16 19:00 12/08/16 18:59
[2016-11-06] MEDS: CHECK SCOPOLAMINE PATCH PLACEMENT SCH (00:21)
[2016-11-06] MEDS ORDERED: SODIUM BICARB 8.4% INJ 50 MEQ/50 ML SYR IV ONE (06:35)
[2016-11-06] MEDS ORDERED: SODIUM CHLORIDE 0.9% 10ML FLUSH IV ONE (06:35)
[2016-11-06] MEDS ORDERED: DEXTROSE 50% 50 ML SYR IV ONE (06:35)
[2016-11-06] MEDS ORDERED: CALCIUM CHLORIDE 10% 10 ML SYR IV ONE (06:35)
--- NOTE | 2016-11-07 17:50 | Discharge Summary ---
Discharge Summary Admission Date: Nov 03, 2016 at 19:29 Discharge Date: Nov 07, 2016 Discharge Disposition: Principal Diagnosis: CARDIOPULMONARY ARREST LIKELY FROM ACUTE HYPOXIC RESPIRATORY FAILURE FROM: PULMONARY EDEMA, IN THE SETTING OF ACUTE RENAL FAILURE ON CKD 4 POSSIBLE BILATERAL PNEUMONIA Secondary Diagnoses/Problems: please refer to hospital course below. Procedures: Mechanical Ventilation Consultations: Dr. Caballero Boring Machine Set Up Operator, Senior Patient Account Representative Admission Information HPI (per Admitting provider): 61 year old female who presents to the ER with lethargy and weakness. Patient has underlying mental retardation and most of the history is obtained from her family. Patient was recently admitted to [facility] 09/26 - 10/01 for sepsis due to pneumonia and UTI. Patient's family reports she has been doing well since being home. Patient started to get sick two nights ago. They have noticed increased lethargy and generalized weakness. She has been breathing through her mouth and fast. She has a cough but it is very weak. She has lower extremity edema which is at baseline. No reports of chest pain. No abdominal pain, nausea, vomiting, or diarrhea. Family has noticed her urine output has been down. No fever or chills. Family contacted patient's leather crafter who ordered labs that showed worsening renal function and hyperkalemia. Patient was referred to the ER for further evaluation. In the ER, patient's creat is 4.8 and K+ is 5.8. U/A is consistent with UTI. Chest XR is showing volume overload. Physical Exam (per Admitting): General Appearance: no apparent distress Head: normocephalic Eyes: normal inspection ENT: hearing grossly normal Neck: supple, no JVD Respiratory/Chest: + crackles, + rhonchi Cardiovascular: regular rate, rhythm, normal peripheral pulses, + pertinent finding Abdomen/GI: normal bowel sounds, non tender, soft Extremities/Musculoskelatal: normal inspection, no calf tenderness Neurologic/Psych: + pertinent finding Skin: normal color, warm/dry Hospital Course 61 year old female with history of MR, DM, CKD 4, Adrenal Insufficiency presenting with lethargy, weakness CARDIOPULMONARY ARREST LIKELY FROM ACUTE HYPOXIC RESPIRATORY FAILURE FROM: PULMONARY EDEMA, IN THE SETTING OF ACUTE RENAL FAILURE ON CKD 4 POSSIBLE BILATERAL PNEUMONIA - family declined Dialysis Nephrology recommending Lasix + Albumin; held due to hypotension - Vanc, Invanz + Levaquin ordered - transitioned to comfort measures after discussion with family by Dr. Caballero extubated continued on Morphine drip, PRN Scopolomine, patient remained comfortable patient 11/06/16, family informed HYPOTHERMIA, LIKELY FROM: UNDERLYING INFECTION- PNEUMONIA ADRENAL INSUFFICIENCY - cultures ordered - blood, urine, sputum was on empiric Vanc, Invanz, Levaquin - Solumedrol was changed to Hydrocortisone 50mg IV q6h HYPERKALEMIA, HYPERCALCEMIA given Insulin ALTERED MENTAL STATUS - likely multifactorial due to above ADRENAL INSUFFICIENCY - chronically on prednisone and Florinef - placed on hydrocortisone DM - hgb a1c 6.2 05/2016 - held oral agents and utilized SSI while hospitalized Total time spent on discharge = This includes examination of the patient, discharge planning, medication reconciliation, and communication with other providers. Discharge Instructions Patient .
--- NOTE | 2016-11-09 09:08 | EDITING REQUIRED CODING QUERY ---
CODING QUERY To promote full compliance with coding requirements relating to patient care, provider participation is requested in all cases of supervisor dock uncertainty. Please assist us with the question(s) below: Coding Question(s): Dr. Torres, Sepsis is documented throughout the patient's charts, but not on the discharge summary. Please clarify if sepsis was: ( ) present and treated during this admission ( ) ruled out ( ) other, please explain Physician's Response(s): Possible Sepsis Present and Treated this admission. Thanks. Thank you for your time, ASHLEY Almeida, CATERER HELPER
== END 2016-11-06 06:36 | disposition expired | DRG 871 ==
LOC: ENRESERVDT → ENRESERVTM → C.EDB 16:41 → C.2T 19:29 → C.MSICU 11-04 01:50 → CANBEDREQ 11-05 13:31 → EDBEDREQTM 11-05 14:48 → C.MS4W 11-05 15:51
PROVIDERS: ADMIT Internal Medicine; ATTEND Internal Medicine
PROC: 0BH17EZ Insertion of Endotracheal Airway into Trachea, Via Natural or Artificial Opening (ICD-10-PCS; principal; 2016-11-04)
PROC: 5A1935Z Respiratory Ventilation, Less than 24 Consecutive Hours (ICD-10-PCS; principal; 2016-11-04)
DX: A41.52 Sepsis due to Pseudomonas (principal); J18.9 Pneumonia, unspecified organism; J96.01 Acute respiratory failure with hypoxia; J81.0 Acute pulmonary edema; N17.9 Acute kidney failure, unspecified; N18.4 Chronic kidney disease, stage 4 (severe); N39.0 Urinary tract infection, site not specified; E27.40 Unspecified adrenocortical insufficiency; J91.8 Pleural effusion in other conditions classified elsewhere; F73 Profound intellectual disabilities; B94.8 Sequelae of other specified infectious and parasitic diseases; I46.9 Cardiac arrest, cause unspecified; I50.9 Heart failure, unspecified; E87.70 Fluid overload, unspecified; B96.5 Pseudomonas (aeruginosa) (mallei) (pseudomallei) as the cause of diseases classified elsewhere; R68.0 Hypothermia, not associated with low environmental temperature; E87.5 Hyperkalemia; E83.52 Hypercalcemia; E88.09 Other disorders of plasma-protein metabolism, not elsewhere classified; R41.82 Altered mental status, unspecified; D64.9 Anemia, unspecified; E11.22 Type 2 diabetes mellitus with diabetic chronic kidney disease; Z66 Do not resuscitate; Z51.5 Encounter for palliative care; Z96.649 Presence of unspecified artificial hip joint; Z90.3 Acquired absence of stomach [part of]; Z79.2 Long term (current) use of antibiotics; Z79.52 Long term (current) use of systemic steroids; Z79.84 Long term (current) use of oral hypoglycemic drugs; Z79.899 Other long term (current) drug therapy